=== PATIENT | female | born 1940 | race Caucasian/White ===

== ENCOUNTER 2019-01-20 20:59 | Inpatient (IN) | payer MEDICARE, OTHER, SELFPAY ==
[2019-01-20] VITALS (7 sets, daily range): BP systolic 176–217; BP diastolic 48–80; PULSE 83–92; RESP 17–20; TEMP 38.3; O2SAT 87–94; BMI 28.8
--- NOTE | 2019-01-20 21:29 | DI.RAD.S_ITS ---
PROCEDURE: XR CHEST 2V INDICATIONS: shortness of breath TECHNIQUE: 2 views of the chest were acquired. COMPARISON: [facility], CR, CHEST 1 VIEW, 12/31/2016, 7:20. [facility], CR, CHEST 2 VIEW, 06/03/2008, 14:02. [facility], CT, PE STUDY (CTA CHEST), 12/31/2016, 8:36. FINDINGS: Surgical changes and devices: A pacer device is seen. The leads are seen in stable positions. Lungs and pleura: There is focal dense infiltrate involving the inferior aspect of the right upper lobe. Interstitial prominence can be seen throughout the lungs. No pneumothorax or pleural effusions are seen. Mediastinum: The cardiac contours are within normal limits. The aorta demonstrates calcification and tortuosity. Bones and chest wall: Age-appropriate bony degenerative changes are seen. No suspicious bony abnormalities. Soft tissues appear unremarkable. IMPRESSION: Right upper lobe infiltrate is seen. Interstitial prominence is seen throughout. The interstitial prominence is nonspecific, yet may be related to pulmonary edema. Note: No significant discrepancy from the preliminary report. Dictated by: Gareth Gordon M.D. on 01/21/2019 at 7:23 Approved by: Gareth Gordon M.D. on 01/21/2019 at 7:24
--- NOTE | 2019-01-20 22:02 | ED.SOB ---
HPI - SOB/Dyspnea General Chief Complaint: Shortness of Breath/Dyspnea Stated Complaint: cough,sob Time Seen by Provider: 01/20/19 22:02 Source: patient Mode of arrival: ambulatory Limitations: no limitations History of Present Illness Patient is a 78-year-old female with multiple medical problems. She is an insulin-dependent diabetic, has a pacemaker in place, is on Coumadin, also had kidney transplant 15 years ago. She is here for cough and shortness of breath. She does have a history of COPD but is not on oxygen at home. Has also had a fever. Related Data Home Medications Medication Instructions Recorded Confirmed mycophenolate mofetil [CellCept] 1 tab PO BID #0 03/17/12 01/20/19 tacrolimus [Prograf] 1 tab PO BID #0 03/17/12 01/20/19 febuxostat 40 mg tablet 40 mg PO DAILY 04/25/18 01/20/19 felodipine ER 10 mg 10 mg PO DAILY #0 tab 04/25/18 01/20/19 tablet,extended release 24 hr furosemide 40 mg tablet 40 mg PO BID #0 tab 04/25/18 01/20/19 metoprolol succinate ER 50 mg 50 mg PO DAILY #0 tab 04/25/18 01/20/19 tablet,extended release 24 hr prednisone 5 mg tablet 5 mg PO DAILY 04/25/18 01/20/19 warfarin 3 mg tablet 3 mg PO SEEINSTR 04/25/18 01/20/19 brimonidine 1 drp EYE-BOTH BID 01/20/19 01/20/19 insulin glargine [Lantus U-100 36 units SUBCUT BID 01/20/19 01/20/19 Insulin] irbesartan [Avapro] 150 mg PO DAILY 01/20/19 01/20/19 metformin 1 tab PO BID 01/20/19 01/20/19 pantoprazole 1 tab PO DAILY 01/20/19 01/20/19 pravastatin [Pravachol] 80 mg PO DAILY 01/20/19 01/20/19 tacrolimus 1 tab PO BID 01/20/19 01/20/19 Previous Rx's Medication Instructions Recorded dorzolamide-timolol [Cosopt] 1 gtt OU BID #3 bot 06/09/12 levothyroxine 100 mcg capsule 100 mcg PO DAILY #90 cap 04/25/18 Allergies Allergy/AdvReac Type Severity Reaction Status Date / Time diphenhydramine Allergy Unknown Verified 01/20/19 23:19 [From BENADRYL] Penicillins [PENICILLINS] Allergy Unknown Verified 01/20/19 23:19 percodan Allergy Mild Uncoded 01/20/19 23:19 Review of Systems Constitutional Reports fatigue, Reports fever(s) and Denies headache(s) ENT Ears, Nose, Mouth, and Throat: Denies headache(s) Cardiovascular Denies chest pain and Reports dyspnea Respiratory Reports chest congestion, Reports cough and Reports dyspnea Gastrointestinal Gastrointestinal: Denies abdominal pain, Denies nausea and Denies vomiting Musculoskeletal Denies myalgias and Denies arthralgias Integumentary/Breasts Denies rash Neurologic Denies headache(s) Endocrine Reports fatigue Hematologic/Lymphatic Denies easy bruising Comments: On Coumadin Allergic/Immunologic Denies urticaria PFSH Medical History Diabetes type 2, controlled (Chronic) Coronary artery disease (Chronic) Peripheral vascular disease (Chronic) Diabetic retinopathy (Chronic) Glaucoma (Chronic) Chronic gout (Chronic) HTN (hypertension), benign (Chronic) History of peritoneal dialysis (Inactive) Surgical History S/P cardiac pacemaker procedure (Inactive) H/O kidney transplant (Inactive ~2004) Renal transplant recipient (Resolved) History of cataract extraction with lens replacement (Inactive) Family History Grandmother Thyroid cancer Other Cancer Social History marital status: number of children: 3 household members: spouse and family lives independently: Yes caregiver/support person: No housing: house pets and animals: No education level: college 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 ([place]) leisure activities: other (Food.) Smoking Status: Never smoker Tobacco: How many years used: 0 quit status: quit date established (Never Started) second hand exposure: Yes (Childhood/Young adulthood) alcohol intake: current substance use type: does not use Social History marital status: number of children: 3 household members: spouse and family lives independently: Yes caregiver/support person: No housing: house pets and animals: No education level: college 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 ([place]) leisure activities: other (Food.) Smoking Status: Never smoker Tobacco: How many years used: 0 quit status: quit date established (Never Started) second hand exposure: Yes (Childhood/Young adulthood) alcohol intake: current substance use type: does not use Exam Initial Vital Signs Initial Vital Signs: Vital Signs Temperature 101.0 F H 01/20/19 21:12 Pulse Rate 83 01/20/19 21:12 Respiratory Rate 20 01/20/19 21:12 Blood Pressure 183/68 H 01/20/19 21:12 Pulse Oximetry 87 L 01/20/19 21:12 Const General: cooperative, well developed, well groomed and No acute distress Orientation: alert, awake and oriented x3 HENMT Head: normal to inspection and normocephalic Resp Effort & Inspection: not labored, no respiratory distress, no retractions and tachypneic Auscultation: clear to auscultation bilaterally Cardio Rate: regular rate Pulses: radial pulses present Skin Lesions: no lesions Rashes: no rashes Neuro General: alert, awake and oriented x3 Cognition: normal cognition Speech: speech normal Extrem General: normal to inspection and capillary refill normal Psych Appearance: grossly normal and well kempt Scores GCS Mcclure coma scale eye opening: Spontaneous Ashlie coma scale verbal response: Orientated Ashlie coma scale motor response: Obey commands Mcclure coma scale total score: 15 Course Orders Ordered: ED Orders 01/20/19 21:29 XR chest 2V Stat EKG-12 Lead Stat 01/20/19 21:37 Urine Culture Stat Urine Microscopic Stat 01/20/19 22:39 B Type Natriuretic Peptide Stat Complete Blood Count AUTO DIFF Stat Comprehensive Metabolic Panel Stat Lactate (Lactic Acid) Stat Procalcitonin Stat Troponin I Stat 01/21/19 00:59 Consult to Physician Routine Discontinued Medications Azithromycin (Zithromax) 500 mg PO NOW ONE Stop: 01/20/19 23:29 Last Admin: 01/20/19 23:35 Dose: 500 mg Brimonidine Tartrate (Alphagan P 0.15%) 1 drops EYE-BOTH NOW ONE Stop: 01/21/19 00:55 Last Admin: 01/21/19 03:01 Dose: Not Given Dorzolamide/Timolol (Cosopt Eye Drops) 1 drops EYE-BOTH NOW ONE Stop: 01/21/19 00:55 Last Admin: 01/21/19 03:01 Dose: Not Given Furosemide (Lasix) 40 mg PO NOW ONE Stop: 01/21/19 00:55 Last Admin: 01/21/19 01:54 Dose: Not Given Irbesartan (Avapro) 150 mg PO NOW ONE Stop: 01/21/19 00:55 Last Admin: 01/21/19 02:17 Dose: 150 mg Metformin HCl (Glucophage) 500 mg PO NOW ONE Stop: 01/21/19 00:55 Last Admin: 01/21/19 01:47 Dose: 500 mg Mycophenolate Mofetil (Cellcept) 500 mg PO NOW ONE Stop: 01/21/19 00:59 Last Admin: 01/21/19 02:17 Dose: 500 mg Pantoprazole Sodium (Protonix) 40 mg PO NOW ONE Stop: 01/21/19 00:55 Last Admin: 01/21/19 01:47 Dose: 40 mg Tacrolimus (Prograf) 0.5 mg PO NOW ONE Stop: 01/21/19 00:59 Last Admin: 01/21/19 02:17 Dose: 0.5 mg Warfarin Sodium (Coumadin) 4.5 mg PO NOW ONE Stop: 01/21/19 00:55 Last Admin: 01/21/19 01:54 Dose: Not Given Warfarin Sodium (Coumadin) 3 mg PO NOW ONE Stop: 01/21/19 01:55 Last Admin: 01/21/19 02:17 Dose: 3 mg Vital Signs - 8 hr 01/20/19 21:12 01/20/19 22:24 01/20/19 22:29 Temperature 101.0 F H Pulse Rate 83 86 Respiratory Rate 20 17 Blood Pressure 183/68 H Blood Pressure [Right Arm] Pulse Oximetry 87 L 91 91 01/20/19 22:30 01/20/19 22:54 01/20/19 23:00 Temperature Pulse Rate 85 92 H 84 Respiratory Rate 20 Blood Pressure Blood Pressure [Right Arm] 217/80 H 217/80 H 181/52 H Pulse Oximetry 92 94 89 L 01/20/19 23:30 01/21/19 00:00 01/21/19 00:30 Temperature Pulse Rate 85 87 87 Respiratory Rate Blood Pressure Blood Pressure [Right Arm] 176/48 H 199/61 H 212/71 H Pulse Oximetry 89 L 88 L 92 01/21/19 01:00 01/21/19 01:30 01/21/19 02:25 Temperature 99.0 F Pulse Rate 87 84 84 Respiratory Rate 26 H 24 Blood Pressure Blood Pressure [Right Arm] 203/60 H 186/60 H 183/69 H Pulse Oximetry 93 92 92 01/21/19 02:45 01/21/19 03:49 Temperature 100.4 F H Pulse Rate 82 Respiratory Rate 24 Blood Pressure 189/70 H 139/93 H Blood Pressure [Right Arm] Pulse Oximetry 91 MDM - SOB/Dyspnea Medical Records Attestation: I reviewed the patient's medical records. Lab Data Attestation: I reviewed the patient's lab results. Result diagrams: 01/20/19 22:39 01/20/19 22:39 Lab Results 01/20/19 01/20/19 01/20/19 Range/Units 21:37 22:39 22:39 WBC 8.3 (4.5-11.0) X10^3/uL RBC 4.26 (4.0-5.2) X10^6/uL Hgb 10.2 L (12.0-16.0) g/dL Hct 33.1 L (36-46) % MCV 77.9 L (80-100) fL MCH 24.0 L (26-34) PG MCHC 30.8 (30-36) % RDW 19.1 H (11.6-14.8) % Plt Count 175 (150-400) X10^3/uL Neut % (Auto) 84.5 H (50-75) % Lymph % (Auto) 6.2 L (25-40) % [place] % (Auto) 9.0 (3-14) % Eos % (Auto) 0.1 L (2-4) % Baso % (Auto) 0.2 (0-2) % Neut # (Auto) 7000 (0408-7261) /uL Lymph # (Auto) 500 L (7462-1397) /uL [place] # (Auto) 700 (0-900) /uL Eos # (Auto) 0 (0-450) /uL Baso # (Auto) 0 (0-100) /uL Sodium 140 (137-145) mmol/L Potassium 4.1 (3.4-5.1) mmol/L Chloride 107 (98-107) mmol/L Carbon Dioxide 19 L (22-32) mmol/L BUN 36 H (7-17) mg/dL Creatinine 1.00 (0.52-1.04) mg/dL Estimated GFR 53.6 L (>60) mL/min BUN/Creatinine Ratio 36.0 H (6-22) Glucose 358 H (80-110) mg/dL Lactate (0.7-2.1) mmol/L Calcium 9.4 (8.4-10.2) mg/dL Total Bilirubin 1.1 (0.2-1.3) mg/dL AST 14 (14-36) IU/L ALT 11 (9-52) IU/L Alkaline Phosphatase 61 (38-126) U/L Troponin I (0.01-0.034) ng/mL B-Natriuretic Peptide (<100) Total Protein 6.6 (6.3-8.2) g/dL Albumin 4.0 (3.5-5.0) g/dL Globulin 2.6 (1.7-4.1) g/dL Albumin/Globulin Ratio 1.5 (1.0-2.8) Procalcitonin (<0.5) ng/mL Urine RBC 0-1/hpf (0-5/HPF) Urine WBC 1-5/hpf (0-5/HPF) Ur Squamous Epith Cells 1-5 /hpf (0-5/HPF) Urine Bacteria Occasional (0-1) (None) Ur Culture Indicated? Specimen cultured 01/20/19 01/20/19 01/20/19 Range/Units 22:39 22:39 22:39 WBC (4.5-11.0) X10^3/uL RBC (4.0-5.2) X10^6/uL Hgb (12.0-16.0) g/dL Hct (36-46) % MCV (80-100) fL MCH (26-34) PG MCHC (30-36) % RDW (11.6-14.8) % Plt Count (150-400) X10^3/uL Neut % (Auto) (50-75) % Lymph % (Auto) (25-40) % [place] % (Auto) (3-14) % Eos % (Auto) (2-4) % Baso % (Auto) (0-2) % Neut # (Auto) (7448-8466) /uL Lymph # (Auto) (2863-6364) /uL [place] # (Auto) (0-900) /uL Eos # (Auto) (0-450) /uL Baso # (Auto) (0-100) /uL Sodium (137-145) mmol/L Potassium (3.4-5.1) mmol/L Chloride (98-107) mmol/L Carbon Dioxide (22-32) mmol/L BUN (7-17) mg/dL Creatinine (0.52-1.04) mg/dL Estimated GFR (>60) mL/min BUN/Creatinine Ratio (6-22) Glucose (80-110) mg/dL Lactate 1.0 (0.7-2.1) mmol/L Calcium (8.4-10.2) mg/dL Total Bilirubin (0.2-1.3) mg/dL AST (14-36) IU/L ALT (9-52) IU/L Alkaline Phosphatase (38-126) U/L Troponin I 0.052 H (0.01-0.034) ng/mL B-Natriuretic Peptide (<100) Total Protein (6.3-8.2) g/dL Albumin (3.5-5.0) g/dL Globulin (1.7-4.1) g/dL Albumin/Globulin Ratio (1.0-2.8) Procalcitonin 0.38 (<0.5) ng/mL Urine RBC (0-5/HPF) Urine WBC (0-5/HPF) Ur Squamous Epith Cells (0-5/HPF) Urine Bacteria (None) Ur Culture Indicated? 01/20/19 Range/Units 22:39 WBC (4.5-11.0) X10^3/uL RBC (4.0-5.2) X10^6/uL Hgb (12.0-16.0) g/dL Hct (36-46) % MCV (80-100) fL MCH (26-34) PG MCHC (30-36) % RDW (11.6-14.8) % Plt Count (150-400) X10^3/uL Neut % (Auto) (50-75) % Lymph % (Auto) (25-40) % [place] % (Auto) (3-14) % Eos % (Auto) (2-4) % Baso % (Auto) (0-2) % Neut # (Auto) (0151-9495) /uL Lymph # (Auto) (9004-9262) /uL [place] # (Auto) (0-900) /uL Eos # (Auto) (0-450) /uL Baso # (Auto) (0-100) /uL Sodium (137-145) mmol/L Potassium (3.4-5.1) mmol/L Chloride (98-107) mmol/L Carbon Dioxide (22-32) mmol/L BUN (7-17) mg/dL Creatinine (0.52-1.04) mg/dL Estimated GFR (>60) mL/min BUN/Creatinine Ratio (6-22) Glucose (80-110) mg/dL Lactate (0.7-2.1) mmol/L Calcium (8.4-10.2) mg/dL Total Bilirubin (0.2-1.3) mg/dL AST (14-36) IU/L ALT (9-52) IU/L Alkaline Phosphatase (38-126) U/L Troponin I (0.01-0.034) ng/mL B-Natriuretic Peptide 707 H (<100) Total Protein (6.3-8.2) g/dL Albumin (3.5-5.0) g/dL Globulin (1.7-4.1) g/dL Albumin/Globulin Ratio (1.0-2.8) Procalcitonin (<0.5) ng/mL Urine RBC (0-5/HPF) Urine WBC (0-5/HPF) Ur Squamous Epith Cells (0-5/HPF) Urine Bacteria (None) Ur Culture Indicated? Point of Care Testing Glucose POC 375 Urine Dip Bedside Urine Glucose 250 mg/dl Bedside Urine Bilirubin - Negative Bedside Urine Ketone +/- 5 Urine Specific [place] 1.02 Bedside Urine Occult Blood +/- Bedside Urine pH 5.5 Bedside Urine Protein + 30 Bedside Urine Urobilinogen - Negative Bedside Urine Nitrite - Negative Bedside Urine Leukocytes + 70 Esterase Imaging Data Chest x-ray: Attestation: I personally reviewed and interpreted this imaging study as follows: My impression: Right middle lobe pneumonia ECG Data Attestation: I personally reviewed and interpreted this ECG as follows: Prior ECG tracings: not available for review Interpretation: Ventricular paced Rate of 86 Left axis deviation MDM Narrative Medical decision making narrative: Patient hypoxic on room air to the mid to high 80s. This did improve with nasal cannula. She does have history of a renal transplant however her creatinine and GFR today is fairly unremarkable. She is on warfarin. She has not had any recent hospitalizations. Her chest x-ray is concerning for pneumonia. She is also febrile. Most likely not tachycardic because of the ventricular pacemaker. Patient was never hypotensive. Was given oral azithromycin. I did discuss the case with Dr. Lopez who is on-call for the patient's primary provider. Will admit for further evaluation treatment. Discussed admission with the patient and her who is at bedside. They both expressed understanding and agreement. Discharge Plan Departure Patient Disposition: Admitted As Inpatient Clinical Impression: Hypoxia Pneumonia Qualifiers: Pneumonia type: due to unspecified organism Laterality: right Lung location: middle lobe of lung Qualified Code(s): J18.1 - Lobar pneumonia, unspecified organism Discharge Date/Time: 01/21/19 02:45 Interventions: ED Discharge Assessment Last Done: 01/21/19 02:45 Admit Date/Time: 01/21/19 00:54 Admit Provider: Hi Lopez
[2019-01-20 22:34] LABS: Bacteria Urine Occasional (0-1); Culture Indicated Urine Specimen Cultured; RBC Urine 0-1/HPF (0-5/HPF); Squamous Epithelial Cell Urine 1-5 /HPF (0-5/HPF); WBC Urine 1-5/HPF (0-5/HPF)
[2019-01-20 22:50] LABS: Add Manual Diff / Slide Review NO; Basophils Absolute Auto 0 /uL (0-100); Basophils Percent Auto 0.2 % (0-2); Eosinophils Absolute Auto 0 /uL (0-450); Eosinophils Percent Auto 0.1 % (2-4); Hematocrit 33.1 % (36-46); Hemoglobin 10.2 g/dL (12.0-16.0); Lymphocytes Absolute Auto 500 /uL (1100-4500); Lymphocytes Percent Auto 6.2 % (25-40); Mean Corpuscular HGB Conc 30.8 % (30-36); Mean Corpuscular Volume 77.9 fL (80-100); Monocytes Absolute Auto 700 /uL (0-900); Neutrophils Absolute Auto 7000 /uL (1500-7000); Neutrophils Percent Auto 84.5 % (50-75); Platelet Count 175 X10^3/uL (150-400); Red Blood Cell Count 4.26 X10^6/uL (4.0-5.2); Red Cell Distribution Width 19.1 % (11.6-14.8); White Blood Cell Count 8.3 X10^3/uL (4.5-11.0)
[2019-01-20 23:10] LABS: Alanine Aminotransferase 11 IU/L (9-52); Albumin Globulin Ratio 1.5 (1.0-2.8); Alkaline Phosphatase 61 U/L (38-126); Aspartate Aminotransferase 14 IU/L (14-36); Bilirubin Total 1.1 mg/dL (0.2-1.3); Blood Urea Nitrogen 36 mg/dL (7-17); Calcium 9.4 mg/dL (8.4-10.2); Carbon Dioxide 19 mmol/L (22-32); Chloride 107 mmol/L (98-107); Estimated Glomerular Filt Rate 53.6 mL/min (>60); Globulin 2.6 g/dL (1.7-4.1); Glucose 358 mg/dL (80-110); HEMOLYSIS < 15 (0-50); Potassium 4.1 mmol/L (3.4-5.1); Sodium 140 mmol/L (137-145); Total Protein 6.6 g/dL (6.3-8.2)
[2019-01-20 23:16] LABS: Troponin I 0.052 ng/mL (0.01-0.034)
[2019-01-20 23:25] LABS: Procalcitonin 0.38 ng/mL (<0.5)
[2019-01-20 23:27] LABS: B Type Natriuretic Peptide 707 (<100)
[2019-01-20] MEDS: AZITHROMYCIN 250 MG TABLET 500 MG PO (23:35)
[2019-01-21] VITALS (16 sets, daily range): BP systolic 136–212; BP diastolic 51–115; PULSE 70–94; RESP 18–26; TEMP 37.2–38; O2SAT 87–95; BMI 28.8
--- NOTE | 2019-01-21 | DI.ECHO.S_ITS ---
[facility]---------+ [facility] +---------+ : : [address] [place] : : : : [id number] : : : : Phone: [phone] Echocardiogram Report + + :Name: DELFINO CORNEJO Study Date: 01/21/2019 Height: 63 in : :[facility] Exam Location: [facility] Weight: 163 lb : : Gender: Female BSA: 1.8 m2 : :: 1940 Age: 78 yrs BP: 169/73 mmHg: :Reason For Study: CHF : : Performed By: Jeet Pichardo : :Referring: CARLINE OCAMPO : + + Interpretation Summary Normal sinus rhythm; wide qrs complexes consistent with right ventricular pacing; occasional PAC's and PVC's. Normal LV size; mild LVH; normal wall motion and LV systolic function. EF is 55-60%. There is severe LA enlargement; otherwise normal chamber sizes. There is severe mitral annular calcification with severe associated mitral stenosis and moderate mitral regurgitation. Mean gradient in diastole is 11 mmHg. There is severely calcified aortic valve with moderate aortic stenosis. There is a pacing lead traversing the tricuspid valve without significant tricuspid regurgitation. There is no prior study available for comparison. Procedure: A two-dimensional transthoracic echocardiogram with color flow and Doppler was performed. The study quality was technically adequate. There is no prior echocardiogram noted for this patient. The patient was in normal sinus rhythm during the exam. The patient had occasional PVCs during the exam. Left Ventricle: The left ventricle is normal in size. Left ventricular wall thickness is mildly increased. The ejection fraction is estimated to be 55- 60%. Apical wall motion abnormality may reflect pacemaker activation. There is a mild dyssynchronous contraction pattern due to the paced rhythm. Right Ventricle: The right ventricle is normal in size and function. There is a pacemaker lead in the right ventricle. Atria: The left atrium is severely dilated. Right atrial size is normal. The interatrial septum is intact with no evidence for an atrial septal defect. Mitral Valve: There is severe mitral annular calcification. The mitral valve leaflets are severely calcified. The mitral valve area by pressure half time is 2.8 cm2. The mean pressure gradient of the mitral vlve is 10.8 mmHg. There is moderate mitral regurgitation. Aortic Valve: The aortic valve is trileaflet. The aortic valve is moderately calcified. The peak aortic velocity is 2.91 m/sec. The aortic valve mean gradient is 24.7 mmHg. The calculated aortic valve area is 1.2 cm2. The aortic valve area is 1.0 centimeters squared by planimetry. There is moderate aortic stenosis. No aortic regurgitation is present. Tricuspid Valve: The tricuspid valve is normal in structure and function. There is trace tricuspid regurgitation. Pulmonary artery pressures cannot be estimated because of the lack of a measurable TR jet velocity. Pulmonic Valve: The pulmonic valve is normal in structure and function. There is trace pulmonic regurgitation. Great Vessels: The aortic root is normal size. The dimensions of the ascending aorta are normal. The pulmonary artery is normal size. The IVC is dilated (diameter is greater than 2.1 cm) yet it collapses greater than 50% with a sniff. This suggests a right atrial pressure of 8 mm Hg. Pericardium/ Pleura There is no pericardial effusion. There is no pleural effusion. MMode/2D Measurements & Calculations LVIDd: 5.2 cm LVOT diam: 2.0 cm LVIDs: 3.8 cm Ao root diam: 2.6 cm FS: 26.4 % Aortic Jxn: 2.1 cm EPSS: 0.63 cm asc Aorta Diam: 3.0 cm IVSd: 1.2 cm LVPWd: 1.2 cm LV mccarty. diameter/BSA (cm/m^2): 2.9 LV sys. diameter/BSA (cm/m^2): 2.2 LA dimension: 4.9 cm RA long axis: 5.2 cm LA A2 area: 28.2 cm2 RA area: 16.2 cm2 LA A4 area: 33.2 cm2 RA vol: 43.0 ml LA length (vol): 6.5 cm RA : 24.2 ml/m2 LA vol: 122.9 ml IVC diam: 2.2 cm LA vol index: 69.3 ml/m2 LUIS FERNANDO (plan): 1.0 cm2 Doppler Measurements & Calculations Ao V2 max: 290.9 cm/sec LVOT Max Devonte: 120.7 cm/sec Ao V2 mean: 244.8 cm/sec LV V1 max P.8 mmHg Ao max P.9 mmHg LV V1 VTI: 29.5 cm Ao mean P.7 mmHg LUIS FERNANDO(I,D): 1.4 cm2 Ao V2 VTI: 62.4 cm LUIS FERNANDO(V,D): 1.2 cm2 sev ratio: 0.47 LUIS FERNANDO indexed to BSA (cm^2/m^2): 0.80 MV E max devonte: 199.8 cm/sec PA V2 max: 110.4 cm/sec MV A max devonte: 191.3 cm/sec PA V2 mean: 86.2 cm/sec MV E/A: 1.0 PA mean P.2 mmHg Med Peak E' Devonte: 3.6 cm/sec PA pr(Accel): 19.1 mmHg E/E' med: 55.3 PA Accel Time: 0.13 sec Lat Peak E' Devonte: 4.4 cm/sec E/E' lat: 45.0 E/e' average: 50.2 MV dec time: 0.27 sec MV P1/2t: 79.0 msec MVA(VTI): 1.3 cm2 MV V2 mean: 156.1 cm/sec MV P1/2t max devonte: 198.1 cm/sec MV mean P.8 mmHg MVA(P1/2t): 2.8 cm2 MV V2 VTI: 65.8 cm SV(LVOT): 88.0 ml Electronically signed by: Evelina Jackson M.D. on Reading Physician:01/21/2019 06:03 PM
[2019-01-21] MEDS: METFORMIN HCL 500 MG TABLET PO (01:47)
[2019-01-21] MEDS: PANTOPRAZOLE 20 MG TABLET 40 MG PO (01:47)
[2019-01-21] MEDS: IRBESARTAN 150 MG TABLET PO (02:17)
[2019-01-21] MEDS: TACROLIMUS 0.5 MG CAPSULE PO (02:17)
[2019-01-21] MEDS: MYCOPHENOLATE MOFETIL 500 MG TABLET PO ×2 (02:17→20:57)
[2019-01-21] MEDS: WARFARIN 3 MG TABLET PO ×2 (02:17→17:29)
--- NOTE | 2019-01-21 10:00 | PM.HP.1 ---
History of Present Illness Date Patient Seen: 01/21/19 Time Patient Seen: 10:00 Chief complaint: cough,sob Narrative: Shortness of breath Patient admitted earlier this morning because of shortness of breath. She has had increasing shortness of breath since approximately Tuesday. No apparent fever. Minimal cough minimal cough production has had some nasal congestion as seen in response to Afrin nasal spray. No pedal edema no calf pain no chest pain she did seem to be breathe easier when she would sit up in a chair but still feeling short of breath. She is unaware whether not she has a diagnosis of COPD but she believe so. She was hospitalized in November of this year in [place] for respiratory difficulty. She believes it was from pneumonia. Her stated they were unable to find the ?pathogen? Patient has history of coronary artery disease, status post stent placement, atrial fibrillation, pacemaker placement. Her grain roaster is Dr. Khoury in [place] and she actually had a routine appointment to see him in the office there tomorrow. She also has bilateral lower extremity stents for peripheral vascular disease No history of strokes. Patient has insulin-dependent diabetes has been on insulin for years. She also is status post kidney transplant perhaps over 15 years ago. Kidney failure due to diabetes. Patient taking prednisone as result of a kidney transplant. Patient History Medical History Diabetes type 2, controlled (Chronic) Coronary artery disease (Chronic) Peripheral vascular disease (Chronic) Diabetic retinopathy (Chronic) Glaucoma (Chronic) Chronic gout (Chronic) HTN (hypertension), benign (Chronic) History of peritoneal dialysis (Inactive) Surgical History S/P cardiac pacemaker procedure (Inactive) H/O kidney transplant (Inactive ~2004) Renal transplant recipient (Resolved) History of cataract extraction with lens replacement (Inactive) Family History Grandmother Thyroid cancer Other Cancer Social History marital status: number of children: 3 household members: spouse and family lives independently: Yes caregiver/support person: No housing: house pets and animals: No education level: college occupational status: other (Retired) Previous occupational history: [employer] travel history: recent ([place]) leisure activities: other (Food.) Smoking Status: Never smoker Tobacco: How many years used: 0 quit status: quit date established (Never Started) second hand exposure: Yes (Childhood/Young adulthood) alcohol intake: current substance use type: does not use Family & Social History Family History Grandmother Thyroid cancer Other Cancer Social History: household members spouse,family Prior Living Arrangements House lives independently Yes caregiver/support person No Safety & Behavioral: Feels Safe in Current Yes Environment Been Physically Hurt or No Threatened By a Person Suicidal Ideation Description None Suicide Plan Description No Plan Tobacco & Substance use: Smoking Status Never smoker alcohol intake current alcohol intake frequency 0-2 drinks per day Substance Use Type does not use Meds Home Medications Medication Instructions Recorded Confirmed Type mycophenolate mofetil [CellCept] 1 tab PO BID #0 03/17/12 01/20/19 History tacrolimus [Prograf] 1 tab PO BID #0 03/17/12 01/20/19 History dorzolamide-timolol [Cosopt] 1 gtt OU BID #3 bot 06/09/12 01/20/19 Rx febuxostat 40 mg tablet 40 mg PO DAILY 04/25/18 01/20/19 History felodipine ER 10 mg 10 mg PO DAILY #0 tab 04/25/18 01/20/19 History tablet,extended release 24 hr furosemide 40 mg tablet 40 mg PO BID #0 tab 04/25/18 01/20/19 History levothyroxine 100 mcg capsule 100 mcg PO DAILY #90 cap 04/25/18 01/20/19 Rx metoprolol succinate ER 50 mg 50 mg PO DAILY #0 tab 04/25/18 01/20/19 History tablet,extended release 24 hr prednisone 5 mg tablet 5 mg PO DAILY 04/25/18 01/20/19 History warfarin 3 mg tablet 3 mg PO SEEINSTR 04/25/18 01/20/19 History brimonidine 1 drp EYE-BOTH BID 01/20/19 01/20/19 History insulin glargine [Lantus U-100 36 units SUBCUT BID 01/20/19 01/20/19 History Insulin] irbesartan [Avapro] 150 mg PO DAILY 01/20/19 01/20/19 History metformin 1 tab PO BID 01/20/19 01/20/19 History pantoprazole 1 tab PO DAILY 01/20/19 01/20/19 History pravastatin [Pravachol] 80 mg PO DAILY 01/20/19 01/20/19 History tacrolimus 1 tab PO BID 01/20/19 01/20/19 History Allergies Allergy/AdvReac Type Severity Reaction Status Date / Time diphenhydramine Allergy Unknown Verified 01/20/19 23:19 [From BENADRYL] Penicillins [PENICILLINS] Allergy Unknown Verified 01/20/19 23:19 percodan Allergy Mild Uncoded 01/20/19 23:19 Review of Systems Review of Systems All systems reviewed & are unremarkable except as noted in HPI and below Exam Vital Signs (past 8 hours): - 01/21/19 02:25 01/21/19 02:45 01/21/19 03:49 Temperature 100.4 F H Pulse Rate 84 82 Respiratory Rate 24 24 Blood Pressure 189/70 H 139/93 H Blood Pressure [Right Arm] 183/69 H Pulse Oximetry 92 91 01/21/19 08:00 01/21/19 09:06 Temperature 99.8 F H Pulse Rate 94 H Respiratory Rate 20 Blood Pressure 182/72 H Blood Pressure [Right Arm] Pulse Oximetry 87 L 92 Oxygen Delivery Method Nasal Cannula Oxygen Flow Rate 5 Narrative Exam Narrative: Gen.: She is resting quietly in bed but looks short of breath. Able to carry on conversation without difficulty. Skin: Warm well perfused. No prominent lesions. Nonicteric. HEENT: PERRL., normal EOM, external ears canals TMs normal, nasal mucosa normal and midline septum, oropharynx without lesions. Neck: Trachea midline. Thyroid nontender and not enlarged. Carotids without bruits. No lymphadenopathy Back: No obvious deformity or tenderness. Chest: Clear to P&A. Symmetric. No rales rhonchi or wheezes able to take a deep breath without difficulty CV: RRR 2/6 systolic murmur left lower sternal border parentheses relates patient has history of mitral valve prolapse. Patient relates she has had a murmur in the past or gallop. No JVD. Abdomen: No masses bruits tenderness or visceromegaly. Neuro: Cranial nerves II through XII grossly intact. Sensory and motor exams intact. Gait normal. Mental status: Intact for screening Extremities: No cyanosis clubbing or edema Musculoskeletal: No gross deformities Lymphatics: Negative for lymphadenopathy, supraclavicular axillary or inguinal Objective Labs Result Diagrams: 01/20/19 22:39 01/20/19 22:39 Labs: Laboratory Results - last 24 hr 01/20/19 01/20/19 01/20/19 21:37 22:39 22:39 WBC 8.3 RBC 4.26 Hgb 10.2 L Hct 33.1 L MCV 77.9 L MCH 24.0 L MCHC 30.8 RDW 19.1 H Plt Count 175 Neut % (Auto) 84.5 H Lymph % (Auto) 6.2 L [place] % (Auto) 9.0 Eos % (Auto) 0.1 L Baso % (Auto) 0.2 Neut # (Auto) 7000 Lymph # (Auto) 500 L [place] # (Auto) 700 Eos # (Auto) 0 Baso # (Auto) 0 Sodium 140 Potassium 4.1 Chloride 107 Carbon Dioxide 19 L BUN 36 H Creatinine 1.00 Estimated GFR 53.6 L BUN/Creatinine Ratio 36.0 H Glucose 358 H Lactate Calcium 9.4 Total Bilirubin 1.1 AST 14 ALT 11 Alkaline Phosphatase 61 Troponin I B-Natriuretic Peptide Total Protein 6.6 Albumin 4.0 Globulin 2.6 Albumin/Globulin Ratio 1.5 Procalcitonin Urine RBC 0-1/hpf Urine WBC 1-5/hpf Ur Squamous Epith Cells 1-5 /hpf Urine Bacteria Occasional (0-1) Ur Culture Indicated? Specimen cultured 01/20/19 01/20/19 01/20/19 22:39 22:39 22:39 WBC RBC Hgb Hct MCV MCH MCHC RDW Plt Count Neut % (Auto) Lymph % (Auto) [place] % (Auto) Eos % (Auto) Baso % (Auto) Neut # (Auto) Lymph # (Auto) [place] # (Auto) Eos # (Auto) Baso # (Auto) Sodium Potassium Chloride Carbon Dioxide BUN Creatinine Estimated GFR BUN/Creatinine Ratio Glucose Lactate 1.0 Calcium Total Bilirubin AST ALT Alkaline Phosphatase Troponin I 0.052 H B-Natriuretic Peptide Total Protein Albumin Globulin Albumin/Globulin Ratio Procalcitonin 0.38 Urine RBC Urine WBC Ur Squamous Epith Cells Urine Bacteria Ur Culture Indicated? 01/20/19 22:39 WBC RBC Hgb Hct MCV MCH MCHC RDW Plt Count Neut % (Auto) Lymph % (Auto) [place] % (Auto) Eos % (Auto) Baso % (Auto) Neut # (Auto) Lymph # (Auto) [place] # (Auto) Eos # (Auto) Baso # (Auto) Sodium Potassium Chloride Carbon Dioxide BUN Creatinine Estimated GFR BUN/Creatinine Ratio Glucose Lactate Calcium Total Bilirubin AST ALT Alkaline Phosphatase Troponin I B-Natriuretic Peptide 707 H Total Protein Albumin Globulin Albumin/Globulin Ratio Procalcitonin Urine RBC Urine WBC Ur Squamous Epith Cells Urine Bacteria Ur Culture Indicated? Labs reviewed as above. Of significance is a normal white blood cell count. Normal lactate. Normal procalcitonin. Additionally of significance is elevated BNP. Her renal function is mainly normal. Blood sugar elevated. Chest x-ray is reviewed and certainly has changes consistent with pneumonia versus CHF. Also of note is elevated troponin Assessment & Plan Assessment & Plan narrative: 1. Acute shortness of breath. Chest x-ray most consistent with pneumonia. Remainder of markers however are normal. Other considerations include exacerbation of perhaps pre-existing COPD. Congestive heart failure is manifested by the x-ray and elevated BNP. Patient obviously is at risk for congestive heart failure with prior cardiac status. She currently is on Lasix and perhaps has had history of this in the past. Patient is unclear whether not she has or has not. 2. Coronary artery disease with 2 stents. Currently being followed by Dr. Khoury grain roaster in [place]. Presumably discussion will be made with Dr. Khoury tomorrow by patient's PCP is Dr. Bustos. 3. Pacemaker apparently for some heart block issues. 4. Atrial fibrillation. 5. Diabetes mellitus marginally well controlled per her report. 6. Status post renal failure status post kidney transplant now with normal renal function. 7. Peripheral vascular disease status post stents. Patient also on blood thinners for all the above problems. 8. Elevated troponin history obviously concern for acute coronary event. Repeat troponin ordered as well as echocardiogram. 9. Patient will be continued on IV azithromycin as well as small dose of Lasix. Respiratory therapy to be involved. Quality VTE Deep Vein Thrombosis/Pulmonary Embolism Present on Admission: No
[2019-01-21] MEDS: SODIUM CHLORIDE 0.9% 1,000 ML 50 ML IV (10:28)
[2019-01-21] MEDS: AZITHROMYCIN 250 MG in DEXTROSE 5% IN WATER 250 ML IV (10:28)
[2019-01-21] MEDS: FUROSEMIDE 20 MG/2 ML VIAL IV (10:28)
[2019-01-21] MEDS: SODIUM CHLORIDE 0.9% FLUSH 10 ML IV (10:28)
[2019-01-21] MEDS: INSULIN GLARGINE 100 UNIT/ML 3ML PEN 36 UNIT SUBCUT ×2 (10:29→20:56)
[2019-01-21 11:01] LABS: INR 2.4 (0.9-1.3); Prothrombin Time 28.3 SECONDS (10.1-12.7)
[2019-01-21 11:08] LABS: Troponin I 0.104 ng/mL (0.01-0.034)
--- NOTE | 2019-01-21 12:03 | CM.DANOTE ---
Patient is a 78 year old female who was admitted on 01/21/19 for SOB and cough. Pt has [facility] and [facility] for insurance and her PCP is Dr. Lopez. EMR was reviewed. Per MD, ordering an Echo to help determine Pneumonia vs CHF. Per RT, pt currently on oxygen and doesn't have home oxygen at baseline and with hx of COPD. SW met bedside with pt and spouse and explained role and updated white board. Pt clearly feeling not well with eyes closed and some grimace features but pt was still able to follow conversation and answer questions. Spouse confirms that they live 6 months in their home in [place] and 6 months in [place]. Pt and spouse just left [place] on to move into their home in [place] for the summer. Pt is typically Independent with most ADL's at baseline and does not use home oxygen. Pt states her is her DPOA and they will try to bring in copies. Pt unsure of d/c planning needs but denies any hx of HH or SNF. SW provided pt her Medicare Rights and she and spouse acknowledged understanding and pt requested spouse sign the Medicare Message as she was feeling very unwell. Plan: SW to follow for further tests and therapy to determine d/c planning needs. PT/OT orders could be helpful in determining needs once pt more medically stable. DIMAS Paul Discharge Planning/Care Management Advanced directive, confirm from FAMILY Start: 01/21/19 03:22 Freq: Q24H Status: Active Protocol: Document 01/21/19 09:06 KTE (Rec: 01/21/19 09:20 KTE [id number]) Advance Directive, confirm on record Time 09:06 Person contacted Copy received No CM Discharge Assessment Start: 01/21/19 12:00 Freq: Status: Active Protocol: Document 01/21/19 12:00 BF (Rec: 01/21/19 12:03 BF [id number]) Discharge Planning Assessment Assigned Furniture Designer DIMAS Dean DPOA/Assigned Designee Name Spouse Jimmy Contact Information [phone] Advance Directives? Yes Advance Directives on File No: Will bring in a copy History Provided By Patient Family Member Medical Record Has Patient been admitted in last 30 No days? Prior Living Arrangements House Household Members spouse Type of transporation used prior to Relies on Others admit Independent with ADL's Yes Is patient alert and oriented? Yes Needs Assistance With Home Chores / Shopping Caregiver for Another No Comment Waiting for further tests and therapy Barriers to Discharge No Discharge Plan Home Transportation Arrangement Spouse bedside and can provide transport if pt safe for d/c home Additional Comment Waiting for further therapy and progress to determine if safe for home Whiteboard Updated in Patient Room with Yes name and ext. # of Furniture Designer Review Status In Process Please Provide Date Initial DC 01/21/19 Assessment Was Performed Next Review Type Continued Stay Review
[2019-01-21 12:37] LABS: Adenovirus Not Detected (Not Detect); Bordetella pertussis Not Detected (Not Detect); Chlamydophila pneumoniae Not Detected (Not Detect); Coronavirus 229E Not Detected (Not Detect); Coronavirus HKU1 Not Detected (Not Detect); Coronavirus NL 63 Not Detected (Not Detect); Coronavirus OC43 Not Detected (Not Detect); Human Metapneumovirus Not Detected (Not Detect); Human Rhinovirus/Enterovirus Not Detected (Not Detect); Influenza A Not Detected (Not Detect); Influenza B Not Detected (Not Detect); Mycoplasma pneumoniae Not Detected (Not Detect); Parainfluenza Virus 1 Not Detected (Not Detect); Parainfluenza Virus 2 Not Detected (Not Detect); Parainfluenza Virus 3 Not Detected (Not Detect); Parainfluenza Virus 4 Not Detected (Not Detect); Respiratory Syncytial Virus Not Detected (Not Detect)
[2019-01-21] MEDS: INSULIN ASPART 100 UNIT/ML INSULN PEN SUBCUT ×2 (12:52→17:28)
[2019-01-21 14:37] LABS: Magnesium 1.7 mg/dL (1.6-2.3)
[2019-01-21 14:39] LABS: Hemoglobin A1C% w Est Avg Glu 7.6 % (4.0-6.0)
[2019-01-21 14:49] LABS: Troponin I 0.086 ng/mL (0.01-0.034)
[2019-01-21] MEDS: FUROSEMIDE 40 MG/4 ML VIAL IV (17:28)
[2019-01-21] MEDS: ALBUTEROL/IPRATROPIUM 3 ML AMPUL INH (20:20)
[2019-01-21] MEDS: DORZOLAMIDE/TIMOLOL OPHTH 10 ML 1 DROPS EYE-BOTH (20:53)
[2019-01-21] MEDS: BRIMONIDINE 0.15% OPHTH 5 ML 1 DROPS EYE-BOTH (20:53)
[2019-01-21] MEDS: TACROLIMUS 0.5 MG CAPSULE 1 MG PO (20:55)
[2019-01-21] MEDS: METFORMIN XR 500 MG TABLET PO (20:56)
[2019-01-21] MEDS: FUROSEMIDE 40 MG TABLET PO (20:56)
[2019-01-21] MEDS: ACETAMINOPHEN 325 MG TABLET 650 MG PO (20:58)
[2019-01-21] MEDS: PANTOPRAZOLE 40 MG TABLET PO (20:58)
--- NOTE | 2019-01-21 22:21 | PC.NURSE ---
Evening Shift Note- Patient alert and oriented and able to make needs known to staff. Patient pleasent, calm, and cooperative with care. No complaints of pain or discomfort. No complaints of N/V. Reviewed Medications list with patient and . Called Dr Lopez to correct medication list. Dr. lopez Ok'ed changes to anti-rejection medications that had been entered incorrectly. Dr. Lopez also OK the D/C of the tele monitor. Safety measures in place. Patient agrees to call for assistance. call linder and phone within reach. will continue to monitor.
[2019-01-22] VITALS (18 sets, daily range): BP systolic 128–142; BP diastolic 52–96; PULSE 61–80; RESP 15–25; TEMP 36.6–37.8; O2SAT 88–97
[2019-01-22] MEDS: LEVOTHYROXINE 100 MCG TABLET PO (06:05)
[2019-01-22 06:12] LABS: INR 4.3 (0.9-1.3); Prothrombin Time 50.9 SECONDS (10.1-12.7)
[2019-01-22 06:14] LABS: Add Manual Diff / Slide Review NO; Basophils Absolute Auto 0 /uL (0-100); Basophils Percent Auto 0.4 % (0-2); Eosinophils Absolute Auto 100 /uL (0-450); Eosinophils Percent Auto 1.5 % (2-4); Hematocrit 28.3 % (36-46); Lymphocytes Absolute Auto 700 /uL (1100-4500); Lymphocytes Percent Auto 12.4 % (25-40); Mean Corpuscular HGB Conc 31.8 % (30-36); Mean Corpuscular Hemoglobin 24.5 PG (26-34); Mean Corpuscular Volume 77.2 fL (80-100); Monocytes Absolute Auto 600 /uL (0-900); Monocytes Percent Auto 10.7 % (3-14); Neutrophils Absolute Auto 4000 /uL (1500-7000); Platelet Count 175 X10^3/uL (150-400); Red Blood Cell Count 3.67 X10^6/uL (4.0-5.2); Red Cell Distribution Width 18.8 % (11.6-14.8); White Blood Cell Count 5.3 X10^3/uL (4.5-11.0)
[2019-01-22 06:19] LABS: BUN Creatinine Ratio 33.6 (6-22); Blood Urea Nitrogen 37 mg/dL (7-17); Carbon Dioxide 23 mmol/L (22-32); Chloride 108 mmol/L (98-107); Glucose 104 mg/dL (80-110); HEMOLYSIS < 15 (0-50); Potassium 3.5 mmol/L (3.4-5.1); Sodium 139 mmol/L (137-145)
--- NOTE | 2019-01-22 09:03 | P.PN_ITS ---
Subjective Date Patient Seen: 01/22/19 Time Patient Seen: 08:57 Interval history: Patient's admission status and care over the weekend reviewed with Dr. Lopez who cared for her Patient reports this morning she still feels pretty ?crummy? but perhaps slightly better than upon admission and perhaps even minimally better than yesterday Coughing is bothering her the most. Is less short of breath on the oxygen No new symptoms or problems Exam Vital Signs (past 8 hours): - 01/22/19 06:17 01/22/19 06:28 01/22/19 07:48 Temperature 98.4 F 99.2 F Pulse Rate 79 73 70 Respiratory Rate 25 H 18 Blood Pressure 142/64 H 135/82 Pulse Oximetry 93 97 01/22/19 07:59 Temperature Pulse Rate Respiratory Rate Blood Pressure Pulse Oximetry 97 Oxygen Delivery Method Nasal Cannula Oxygen Flow Rate 4.5 Narrative Exam Narrative: Elderly female in no obvious distress sitting up on the side of the bed. She is not coughing as I speak with her and even as I examine her HEENT-unremarkable, normocephalic atraumatic Neck-no lymphadenopathy no bruits Lungs-clear anteriorly and posteriorly no wheezes no crackles good breath sounds Heart-regular rate and rhythm, no murmur, rub, or gallop. normal S1-S2 Abdomen-positive bowel tones, soft, nontender, nondistended, no hepat osplenomegaly, no masses palpable Neuro-normal to screening exam, gait not tested Extremities-no cyanosis clubbing or edema Objective Imaging Echocardiogram: Radiologist's impression: Normal sinus rhythm; wide qrs complexes consistent with right ventricular pacing; occasional PAC's and PVC's. Normal LV size; mild LVH; normal wall motion and LV systolic function. EF is 55-60%. There is severe LA enlargement; otherwise normal chamber sizes. There is severe mitral annular calcification with severe associated mitral stenosis and moderate mitral regurgitation. Mean gradient in diastole is 11 mmHg. There is severely calcified aortic valve with moderate aortic stenosis. There is a pacing lead traversing the tricuspid valve without significant tricuspid regurgitation. There is no prior study available for comparison. Labs Result Diagrams: 01/22/19 05:52 01/22/19 05:52 Labs: Laboratory Results - last 24 hr 01/20/19 01/21/19 01/21/19 22:39 10:35 10:50 WBC RBC Hgb Hct MCV MCH MCHC RDW Plt Count Neut % (Auto) Lymph % (Auto) [place] % (Auto) Eos % (Auto) Baso % (Auto) Neut # (Auto) Lymph # (Auto) [place] # (Auto) Eos # (Auto) Baso # (Auto) PT 28.3 H INR 2.4 H Sodium Potassium Chloride Carbon Dioxide BUN Creatinine Estimated GFR BUN/Creatinine Ratio Glucose Hemoglobin A1c Calcium Magnesium Troponin I 0.104 H Chlamy pneumoniae PCR Not detected Adenovirus (PCR) Not detected B.parapertussis DNA PCR Not detected Coronavirus OC43 (PCR) Not detected Coronavirus HKU1 (PCR) Not detected Coronavirus 229E (PCR) Not detected Coronavirus NL63 (PCR) Not detected Human Metapneumovir PCR Not detected Influenza Type A (PCR) Not detected Influenza Type B (PCR) Not detected M. pneumoniae (PCR) Not detected Parainfluenza 1 (PCR) Not detected Parainfluenza 2 (PCR) Not detected Parainfluenza 3 (PCR) Not detected Parainfluenza 4 (PCR) Not detected RSV (PCR) Not detected Entero/Rhino (PCR) Not detected 01/21/19 01/21/19 01/21/19 14:20 14:20 14:20 WBC RBC Hgb Hct MCV MCH MCHC RDW Plt Count Neut % (Auto) Lymph % (Auto) [place] % (Auto) Eos % (Auto) Baso % (Auto) Neut # (Auto) Lymph # (Auto) [place] # (Auto) Eos # (Auto) Baso # (Auto) PT INR Sodium Potassium Chloride Carbon Dioxide BUN Creatinine Estimated GFR BUN/Creatinine Ratio Glucose Hemoglobin A1c 7.6 H Calcium Magnesium 1.7 Troponin I 0.086 H Chlamy pneumoniae PCR Adenovirus (PCR) B.parapertussis DNA PCR Coronavirus OC43 (PCR) Coronavirus HKU1 (PCR) Coronavirus 229E (PCR) Coronavirus NL63 (PCR) Human Metapneumovir PCR Influenza Type A (PCR) Influenza Type B (PCR) M. pneumoniae (PCR) Parainfluenza 1 (PCR) Parainfluenza 2 (PCR) Parainfluenza 3 (PCR) Parainfluenza 4 (PCR) RSV (PCR) Entero/Rhino (PCR) 01/22/19 01/22/19 01/22/19 05:52 05:52 05:52 WBC 5.3 RBC 3.67 L Hgb 9.0 L Hct 28.3 L MCV 77.2 L MCH 24.5 L MCHC 31.8 RDW 18.8 H Plt Count 175 Neut % (Auto) 75.0 Lymph % (Auto) 12.4 L [place] % (Auto) 10.7 Eos % (Auto) 1.5 L Baso % (Auto) 0.4 Neut # (Auto) 4000 Lymph # (Auto) 700 L [place] # (Auto) 600 Eos # (Auto) 100 Baso # (Auto) 0 PT 50.9 H D INR 4.3 H Sodium 139 Potassium 3.5 Chloride 108 H Carbon Dioxide 23 BUN 37 H Creatinine 1.10 H Estimated GFR 48.0 L BUN/Creatinine Ratio 33.6 H Glucose 104 D Hemoglobin A1c Calcium 9.0 Magnesium Troponin I Chlamy pneumoniae PCR Adenovirus (PCR) B.parapertussis DNA PCR Coronavirus OC43 (PCR) Coronavirus HKU1 (PCR) Coronavirus 229E (PCR) Coronavirus NL63 (PCR) Human Metapneumovir PCR Influenza Type A (PCR) Influenza Type B (PCR) M. pneumoniae (PCR) Parainfluenza 1 (PCR) Parainfluenza 2 (PCR) Parainfluenza 3 (PCR) Parainfluenza 4 (PCR) RSV (PCR) Entero/Rhino (PCR) Assessment & Plan Assessment & Plan narrative: 1. Pneumonia-patient's clinical status certainly supports the diagnosis of pneumonia with her hypoxia her cough etc. However she has been afebrile and white blood cell count is normal. Chest x-ray supports pneumonia as well. Continue with current IV antibiotics but would have a low threshold for adding broader spectrum given that patient is minimally immunosuppressed due to her renal transplant. Patient however has an allergy to penicillin may need to investigate that further since no further details are at this point available. Given that she is feeling somewhat better and she is been in the hospital relatively short time given her comorbidities I am not overly concerned at this point. I would have a low threshold for perhaps some advanced imaging of her chest and/or again adding a more broad-spectrum IV antibiotic. Patient clearly had acute respiratory failure upon presentation in the emergency department based on her low oxygen saturation, as well as her tachypnea etc. 2. Renal-status post renal transplant-patient's kidney function appears to be stable and slightly improved over admission. No issues there. 3. Diabetes-adequate blood sugar control for now. Continue to monitor and continue current insulins 4. Cardiac-echocardiogram if she did not really show anything that would be an etiology for her hypoxia and dyspnea.She has normal left ventricular function some moderate aortic stenosis. No prior was available for comparison and I have no cardiology notes to assist in that either. Patient was actually due to see her nurse emergency room today apparently. No real benefit from diuretic therapy yesterday. Will continue to treat as an infectious pneumonia at this point Note: Greater than 30 minutes was spent evaluating the patient on the floor, including examining the patient, discussing clinical course with clinical and nursing staff, reviewing clinical course in the computer, preparing documentation and writing orders for continued management of care, discussing status with family as appropriate, reviewing plans for the next 24 hours with both patient/family and nursing staff as appropriate. Quality VTE Deep Vein Thrombosis/Pulmonary Embolism Present on Admission: No
[2019-01-22] MEDS: BRIMONIDINE 0.15% OPHTH 5 ML 1 DROPS EYE-BOTH ×2 (09:23→20:48)
[2019-01-22] MEDS: DORZOLAMIDE/TIMOLOL OPHTH 10 ML 1 DROPS EYE-BOTH ×2 (09:23→20:48)
[2019-01-22] MEDS: AZITHROMYCIN 250 MG in DEXTROSE 5% IN WATER 250 ML IV (09:24)
[2019-01-22] MEDS: FELODIPINE ER 5 MG TAB 10 MG PO (09:24)
[2019-01-22] MEDS: ACETAMINOPHEN 325 MG TABLET 650 MG PO ×2 (09:24→18:54)
[2019-01-22] MEDS: FUROSEMIDE 40 MG TABLET PO ×2 (09:25→20:48)
[2019-01-22] MEDS: IRBESARTAN 150 MG TABLET PO (09:26)
[2019-01-22] MEDS: MYCOPHENOLATE MOFETIL 500 MG TABLET PO ×2 (09:33→20:48)
[2019-01-22] MEDS: METOPROLOL ER 50 MG TABLET PO (09:33)
[2019-01-22] MEDS: predniSONE 5 MG TABLET PO (09:34)
[2019-01-22] MEDS: PRAVASTATIN 20 MG TABLET 80 MG PO (09:34)
[2019-01-22] MEDS: TACROLIMUS 0.5 MG CAPSULE 1.5 MG PO (09:34)
[2019-01-22] MEDS: ALBUTEROL/IPRATROPIUM 3 ML AMPUL INH ×2 (09:54→18:04)
[2019-01-22] MEDS: SODIUM CHLORIDE 0.9% 1,000 ML 50 ML IV (10:05)
[2019-01-22] MEDS: INSULIN ASPART 100 UNIT/ML INSULN PEN SUBCUT ×3 (12:55→20:49)
--- NOTE | 2019-01-22 15:11 | OT.IP.TRT ---
Occupational Therapy Treatment Note M3 OT- IP Subjective and Pain Start: 01/22/19 15:10 Freq: Status: Active Protocol: Document 01/22/19 15:10 [facility] (Rec: 01/22/19 15:11 [facility] [id number]) OT- Subjective Occupational Therapy Visit Type Type Patient Refusal Notes Pt states too tired at this time and wanting to attempt OT eval tomorrow.
--- NOTE | 2019-01-22 15:19 | CM.DPNOTE ---
DCP/continued: Reviewed chart. Met with patient and spouse at bedside re: d/c planning and insurance related questions. Patient resting in bed with [address] Spouse Jimmy, reports that they hope to take patient home when medically stable. Spouse with questions pertaining to Medicare coverage. Notified spouse that patient is inpatient status and that no d/c date has been determined as of now. Reviewed Dr. Bustos note. Patient currently on IV abx and requiring 02. Patient would benefit from PT/OT evaluations when medically appropriate to assist in determining safe d/c plan. P: Pending. Anticipate home when medically stable. Patient and spouse are planning on home. DIMAS Banerjee
[2019-01-22] MEDS: TACROLIMUS 0.5 MG CAPSULE 1 MG PO (20:48)
[2019-01-22] MEDS: PANTOPRAZOLE 40 MG TABLET PO (20:48)
[2019-01-22] MEDS: METFORMIN XR 500 MG TABLET PO (20:48)
[2019-01-22] MEDS: INSULIN GLARGINE 100 UNIT/ML 3ML PEN 36 UNIT SUBCUT (20:49)
--- NOTE | 2019-01-22 22:17 | PC.NURSE ---
Evening note: Jazmín resting tonight, oriented x 3 & situation, VS stable, weaned to 3L O2 with saturation maintaining 95-96% She reports headache pain 7/10, medicated with 2 tylenol and has been dozing since. [place] [facility] [place] 200 ml clear antoine urine. She refused to use walker for transfer but she is quite unsteady on her feet, needs encouragement to use fww by staff. Visiting with her spouse at bedside. Fall precautions in place/alarm active/call button in reach.
[2019-01-23] VITALS (16 sets, daily range): BP systolic 128–147; BP diastolic 62–80; PULSE 53–78; RESP 15–32; TEMP 36.3–36.9; O2SAT 93–97
--- NOTE | 2019-01-23 02:16 | PC.NURSE ---
2300- Pt admit for pneumonia, treated w/ IV abx. ON 3L of O2 viz NC at this time, cont SpO2 in place, sats stable at 95. Pt denies pain or SOB, lung sounds clear. NS running as ordered into R wrist. Moving 1PA to BSC. AC/HS BG checks
[2019-01-23] MEDS: ACETAMINOPHEN 325 MG TABLET 650 MG PO ×2 (05:57→15:37)
[2019-01-23] MEDS: LEVOTHYROXINE 100 MCG TABLET PO (05:59)
[2019-01-23] MEDS: ALBUTEROL/IPRATROPIUM 3 ML AMPUL INH ×3 (06:05→19:02)
[2019-01-23 07:33] LABS: Add Manual Diff / Slide Review NO; Basophils Absolute Auto 0 /uL (0-100); Basophils Percent Auto 0.4 % (0-2); Eosinophils Absolute Auto 100 /uL (0-450); Eosinophils Percent Auto 2.7 % (2-4); Hematocrit 27.3 % (36-46); Hemoglobin 8.6 g/dL (12.0-16.0); Lymphocytes Absolute Auto 700 /uL (1100-4500); Lymphocytes Percent Auto 17.4 % (25-40); Mean Corpuscular HGB Conc 31.7 % (30-36); Mean Corpuscular Hemoglobin 24.4 PG (26-34); Monocytes Absolute Auto 300 /uL (0-900); Monocytes Percent Auto 9.3 % (3-14); Neutrophils Absolute Auto 2600 /uL (1500-7000); Neutrophils Percent Auto 70.2 % (50-75); Platelet Count 181 X10^3/uL (150-400); Red Blood Cell Count 3.54 X10^6/uL (4.0-5.2); Red Cell Distribution Width 18.6 % (11.6-14.8); White Blood Cell Count 3.8 X10^3/uL (4.5-11.0)
[2019-01-23 07:45] LABS: INR 4.1 (0.9-1.3); Prothrombin Time 48.9 SECONDS (10.1-12.7)
[2019-01-23 07:50] LABS: BUN Creatinine Ratio 34.6 (6-22); Blood Urea Nitrogen 45 mg/dL (7-17); Calcium 8.8 mg/dL (8.4-10.2); Carbon Dioxide 23 mmol/L (22-32); Chloride 107 mmol/L (98-107); Estimated Glomerular Filt Rate 39.6 mL/min (>60); Glucose 145 mg/dL (80-110); HEMOLYSIS < 15 (0-50); Potassium 3.6 mmol/L (3.4-5.1); Sodium 138 mmol/L (137-145)
[2019-01-23] MEDS: INSULIN GLARGINE 100 UNIT/ML 3ML PEN 36 UNIT SUBCUT ×2 (08:07→21:02)
[2019-01-23] MEDS: INSULIN ASPART 100 UNIT/ML INSULN PEN SUBCUT ×4 (08:08→21:03)
[2019-01-23] MEDS: SODIUM CHLORIDE 0.9% 1,000 ML 50 ML IV (08:14)
--- NOTE | 2019-01-23 08:38 | P.PN_ITS ---
Subjective Date Patient Seen: 01/23/19 Time Patient Seen: 08:36 Interval history: Patient looks like she feels better. Says she does feel better except for an ongoing headache. No real complaints or issues otherwise Exam Vital Signs (past 8 hours): - 01/23/19 02:03 01/23/19 03:30 01/23/19 06:05 Temperature 98.3 F Pulse Rate 63 Respiratory Rate 16 Blood Pressure 135/70 Pulse Oximetry 95 96 97 01/23/19 07:45 Temperature 98.5 F Pulse Rate 64 Respiratory Rate 15 Blood Pressure 142/80 H Pulse Oximetry 97 Oxygen Delivery Method Nasal Cannula Oxygen Flow Rate 3 Narrative Exam Narrative: Unchanged from previous Objective Labs Result Diagrams: 01/23/19 07:05 01/24/19 05:49 Labs: Laboratory Results - last 24 hr 01/23/19 01/23/19 01/23/19 07:05 07:05 07:05 WBC 3.8 L RBC 3.54 L Hgb 8.6 L Hct 27.3 L MCV 77.0 L MCH 24.4 L MCHC 31.7 RDW 18.6 H Plt Count 181 Neut % (Auto) 70.2 Lymph % (Auto) 17.4 L Schuyler % (Auto) 9.3 Eos % (Auto) 2.7 Baso % (Auto) 0.4 Neut # (Auto) 2600 Lymph # (Auto) 700 L Schuyler # (Auto) 300 Eos # (Auto) 100 Baso # (Auto) 0 PT 48.9 H INR 4.1 H Sodium 138 Potassium 3.6 Chloride 107 Carbon Dioxide 23 BUN 45 H Creatinine 1.30 H Estimated GFR 39.6 L BUN/Creatinine Ratio 34.6 H Glucose 145 H Calcium 8.8 Assessment & Plan Assessment & Plan narrative: 1. Pneumonia -patient's clinical status continues to improve. Continue with current IV antibiotics. Oxygen requirements have diminished. No changes. 2. Renal-patient's creatinine is up slightly today still within her baseline range. I think we can DC IV fluids and rely on oral fluids only. No changes. Plan to recheck tomorrow and if continues to be stable probably not further recheck. 3. Diabetes-adequate blood sugar control for now 4. Cardiac-patient did it appear Systane a type 2 myocardial infarction based on elevated troponin, but no evidence of wall motion abnormality on echocardiogram etc. again believe any cardiac issues are related to her pneumonia hypoxia respiratory failure etc. 5. Coagulopathy-patient continues to have elevated INR. Continue off warfarin for now and recheck protime tomorrow. Resume warfarin when within therapeutic r alcira . Note: Greater than 30 minutes was spent evaluating the patient on the floor, including examining the patient, discussing clinical course with clinical and nursing staff, reviewing clinical course in the computer, preparing documentation and writing orders for continued management of care, discussing status with family as appropriate, reviewing plans for the next 24 hours with both patient/family and nursing staff as appropriate. Quality VTE Deep Vein Thrombosis/Pulmonary Embolism Present on Admission: No
[2019-01-23] MEDS: DORZOLAMIDE/TIMOLOL OPHTH 10 ML 1 DROPS EYE-BOTH ×2 (09:12→20:59)
[2019-01-23] MEDS: FELODIPINE ER 5 MG TAB 10 MG PO (09:13)
[2019-01-23] MEDS: BRIMONIDINE 0.15% OPHTH 5 ML 1 DROPS EYE-BOTH ×2 (09:14→21:00)
[2019-01-23] MEDS: FUROSEMIDE 40 MG TABLET PO ×2 (09:16→21:00)
[2019-01-23] MEDS: METFORMIN XR 500 MG TABLET PO ×2 (09:17→21:00)
[2019-01-23] MEDS: IRBESARTAN 150 MG TABLET PO (09:17)
[2019-01-23] MEDS: METOPROLOL ER 50 MG TABLET PO (09:18)
[2019-01-23] MEDS: MYCOPHENOLATE MOFETIL 500 MG TABLET PO ×2 (09:19→21:00)
[2019-01-23] MEDS: TACROLIMUS 0.5 MG CAPSULE 1.5 MG PO (09:20)
[2019-01-23] MEDS: predniSONE 5 MG TABLET PO (09:21)
[2019-01-23] MEDS: PRAVASTATIN 20 MG TABLET 80 MG PO (09:21)
[2019-01-23] MEDS: SODIUM CHLORIDE 0.9% FLUSH 10 ML IV ×2 (09:23→21:00)
--- NOTE | 2019-01-23 10:28 | PC.NURSE ---
Jazmín feels a bit better today but is still weak and somewhat short of air with exertion. Lungs diminished leonard., with NPC. RT initially weaned Jazmín off O2, but roughly 30 min. later at rest she was de-satting to 84%. O2 replaced at 2L/nc. O2 sats now consistantly in 90's range. VSS. Labs show INR still elevated. has addressed this. PT could benefit from PT.
[2019-01-23] MEDS: AZITHROMYCIN 250 MG in DEXTROSE 5% IN WATER 250 ML IV (10:32)
--- NOTE | 2019-01-23 10:59 | OT.IP.EVAL ---
Current Diagnoses Pneumonia, unspecified organism (01/21/19) Past Medical History (Last Reviewed 01/21/19 @ 10:04 by Hi Lopez MD) Diabetes type 2, controlled (Chronic) Coronary artery disease (Chronic) Peripheral vascular disease (Chronic) Diabetic retinopathy (Chronic) Glaucoma (Chronic) Chronic gout (Chronic) HTN (hypertension), benign (Chronic) History of peritoneal dialysis (Inactive) Surgical History (Last Reviewed 01/21/19 @ 10:04 by Hi Lopez MD) S/P cardiac pacemaker procedure (Inactive) H/O kidney transplant (Inactive ~2004) Renal transplant recipient (Resolved) History of cataract extraction with lens replacement (Inactive) Occupational Therapy Inpatient Evaluation/Re-Eval M1 PT/OT-IP Prior Functional Status Start: 01/22/19 15:10 Freq: NEEDED Status: Active Protocol: Document 01/23/19 10:59 PJRose (Rec: 01/23/19 14:28 PJ [id number]) Medical Review Prior Functional Status Medical History Reviewed Yes Diet/Fluid Consistency Regular Communication WNL Mobility and Gait Pt states she ambulates independently without a device , but has limited endurance for prolonged walking e.g. in grocery store. Activities of Daily Living and IADL's Pt states she is independent with all self care including standing to shower in tub shower combo. Pt does most of the cooking. She and share quantitative developer. Her manages medications, finances. Prior Functional Level (Other details) Pt has not driven for 20 years due to low vision. Social History Household Members spouse Living Arrangements House Number of Floors (Floors) Two Floors Number of Stairs To Enter/Railing? 1 step to enter; pt. stay on main level, they do not use upstairs level Home Environment Standard Height Toilet Tub/Shower Home Equipment Grab Bars In Shower Employment Status Retired Additional Social History Comment Supportive, protective can provide 24 hr assist at d/c. He walks with cane. M2 OT-IP Current Condition Start: 01/22/19 15:10 Freq: Status: Active Protocol: Document 01/23/19 10:59 PJM (Rec: 01/23/19 14:28 JOSE RAMON [id number]) Occupational Therapy Current Condition Current Condition Evaluation Date 01/23/19 Treatment Diagnosis decreased activity tolerance, mobility, self care skills; DX : PNA,CHF Diagnosis Onset Date 01/21/19 Post Operative Precautions Other Precautions fall risk 2L O2 this session, monitor O2 sats M3 OT- IP Subjective and Pain Start: 01/22/19 15:10 Freq: Status: Active Protocol: Document 01/23/19 10:59 PJM (Rec: 01/23/19 14:28 PJ [email or web address]) OT- Subjective Occupational Therapy Visit Type Type Initial Evaluation Visit Start Time 10:19 Visit Stop Time 10:59 Total Visit Minutes 40 Notes observing this session ; He is concerned about pt mobilizing with IV pole due to fragile IV site. Occupational Therapy Visit Comments Patient Comments I can do it. I don't need the walker just to go to the chair. OT Pain Assessment Pain When Pain Assessed After Treatment Pain Present Pain Present Denied Pain M4 OT- IP ADL's Start: 01/22/19 15:10 Freq: Status: Active Protocol: Document 01/23/19 10:59 PJM (Rec: 01/23/19 14:28 PJ [email or web address]) OT [id number] General Evaluation Self-Feeding Ability Independent OT ADL-Grooming General Evaluation Grooming Ability Standby Assistance Comments OT Grooming Comments seated in chair; pt declines to walk to sink this session due to IV running into fragile IV site OT ADL-Oral Care General Eval Oral Care Ability Standby Assistance Comments Oral Care Comments seated in chair OT ADL-Dressing General Eval Upper Body Dressing Ability Minimal Assistance Lower Body Dressing Ability Standby Assistance Areas Needing Assistance Socks Comments OT Dressing Comments min assist with robe due to fragile IV site, pt can reach feet by crossing foot over opposite knee OT ADL-Toileting Comments OT Toileting Comments did not occur this session OT ADL-Bathing Bathing Type Bathing Type Shower Comments OT Bathing Comments to be assessed as activity tolerance improves M5 OT- IP IADL's Start: 01/22/19 15:10 Freq: Status: Active Protocol: Document 01/23/19 10:59 PJM (Rec: 01/23/19 14:28 PJ [id number]) OT-Instrumental Activities of Daily Living Deficits IADL Deficits Identified Deficits Home Safety Awareness Awareness of Need for Assistance at Home Good Awareness Ability to Problem Solve Emergency Able to Problem Solve Situations Medication Management Medication Management Caregiver Administers Medication Management Comments manages all medications at home Money Management Money Management Caregiver Provides Assistance Money Management Comments manages finances due to pt's low vision Meal Preparation Meal Preparation Caregiver Provides Assist Meal Preparation Comments to assist until pt able Fire Prevention Research Engineer Fire Prevention Research Engineer Caregiver Provides Assist Fire Prevention Research Engineer Comments to assist until pt able Driving Driving Caregiver Provides Assist Driving Comments to assist until pt able M6 OT- IP Functional Cognition Start: 01/22/19 15:10 Freq: Status: Active Protocol: Document 01/23/19 10:59 PJM (Rec: 01/23/19 14:28 PJ [id number]) Cognitive Factors Limiting Selfcare Function Cognitive Ability Level of Alertness Alert Patient Orientation Name Place Situation Attention Span Ability Capable of Focused Attention Capable of Sustained Attention Ability to Follow Commands Able to Follow One Step Commands Memory Description No Deficits Noted Safety Awareness No Deficits Noted Cognitive Comments Cognitive Assessment Comments Pt reluctant to use FWW. OT- Vision and Hearing OT- Hearing Assessment OT- Hearing Assessment WFL OT- Vision Assessment Vision History Low Vision Vision Assessment Comments Pt states her glasses don't help so she does not wear them . Pt reports diabetic retinopathy, glaucoma, S/P B cataract surgery M7 OT- IP Mobility and Balance Start: 01/22/19 15:10 Freq: Status: Active Protocol: Document 01/23/19 10:59 PJM (Rec: 01/23/19 14:28 PJ [id number]) OT- Bed Mobility Assessment Rolling Type of Rolling Roll to Left Level of Assistance Standby Assistance 1 Person Assistance Supine to Sit Supine to Sit Assist Standby Assistance 1 Person Assistance Bedrails OT-Transfer Assessment Sit to and From Stand Sit to and from Stand Contact Guard Assistance Transfers Transfer Ability Contact Guard Assistance 1 Person Assistance Technique Transfer Destination Chair Transfer Technique Stand Step Pivot Devices Transfer Assistive Devices Front Wheeled Walker Comments Mobility Comments pt declined gait belt OT- Gait Assessment Comments Gait Ability Comments to be assessed OT- Balance Assessment Sitting Balance and Reactions Static Sitting Balance Ability Good Dynamic Sitting Balance Ability Good Standing Balance and Reactions Static Standing Balance Ability Good M8 OT- IP Objective Assessments Start: 01/22/19 15:10 Freq: Status: Active Protocol: Document 01/23/19 10:59 PJM (Rec: 01/23/19 14:28 PJ [id number]) OT Gross Range of Motion Upper Extremity Range of Motion Assessment Within Functional Limits OT Strength Upper Extremity Strength Assessment Within Functional Limits Hand Regional Sales Director Strength Hand Dominance Right OT- Coordination Assessment Comments Coordination Comments BUW WFL OT-Muscle Tone Assessment Muscle Tone WNL Yes OT Sensation Assessment Comments Summary Comments BUE WFL per pt M9 OT- IP Assessment and Plan Start: 01/22/19 15:10 Freq: Status: Active Protocol: Document 01/23/19 10:59 PJM (Rec: 01/23/19 14:28 PJM [email or web address]) OT Summary Assessment and Plan Potential Rehabilitation Potential Good Analytic Complexity at Evaluation Low Summary OT Impairments Strength Balance Functional Mobility Grooming Dressing Toileting Bathing Toilet Transfers Shower Transfers Assessment Summary Low complexity OT assessment completed on this 78 yr old female admitted with PNA and CHF. Pt's primary performance deficit is decreased activity tolerance for all self care and functional mobility. She was on 2L O2 this session with sats in mid to high 90's with transfer to chair. Pt's is protective and needed education re: benefits of out of bed activity/ mobility with pt's current diagnosis. Pt will benefit from OT services here to address the goals below. Anticipate pt will be able to d/c home when medically stable. Recommend P.T. assessment as pt may benefit from use of FWW for stability during mobility. Goals Grooming Goal Independent Dressing Goal Independent Toileting Goal Independent Bathing Goal Standby Assistance Toilet Transfer Goal Independent Shower Transfer Goal Standby Assistance Shower Chair Patient/Caregiver Education Goal Demonstrate Energy Conservation and Pacing Caregiver Independent Assisting Patient OT-Other Goals Grooming to be done standing at sink 5 min with no loss of balance and good safety awareness. Days to Meet Goals 3 Frequency of Treatment Frequency Of Treatment Once a Day Treatment Plan OT Treatment Plan ADL Training Functional Mobility Patient/Family Education Discharge Planning Discharge Recommendations OT Discharge Recommendations Home with 04/04 Assist Home Equipment Needs shower seat
[2019-01-23] MEDS: TACROLIMUS 0.5 MG CAPSULE 1 MG PO (21:00)
[2019-01-23] MEDS: PANTOPRAZOLE 40 MG TABLET PO (21:00)
[2019-01-24] VITALS (15 sets, daily range): BP systolic 110–142; BP diastolic 54–80; PULSE 52–87; RESP 16–22; TEMP 36.5–37; O2SAT 85–96
[2019-01-24] MEDS: LEVOTHYROXINE 100 MCG TABLET PO (05:51)
[2019-01-24 06:29] LABS: INR 3.1 (0.9-1.3)
[2019-01-24 06:34] LABS: BUN Creatinine Ratio 38.5 (6-22); Blood Urea Nitrogen 50 mg/dL (7-17); Carbon Dioxide 22 mmol/L (22-32); Chloride 109 mmol/L (98-107); Estimated Glomerular Filt Rate 39.6 mL/min (>60); Glucose 50 mg/dL (80-110); HEMOLYSIS < 15 (0-50); Potassium 3.6 mmol/L (3.4-5.1); Sodium 141 mmol/L (137-145)
--- NOTE | 2019-01-24 07:57 | PC.NURSE ---
Addendum entered by Ava Sullivan R.N. 01/24/19 15:22: Pt's blood sugar came up to 86 after breakfast and some glucerna. She has been asymptomatic. Lunch time CBG was 144. Pt's O2 sats recovered into the mid 90's after RT provided am breathing treatment. Original Note: Pt found to have blood glucose of 56 this am upon waking. She was provided a glucerna drink before reassessing. O2 sats 86% on 2L via nasal cannula. Pt O2 turned up to 3L and RT has been contacted and requested at the bedside for assessment and breathing treatment.
[2019-01-24] MEDS: ALBUTEROL/IPRATROPIUM 3 ML AMPUL INH ×3 (08:06→19:04)
--- NOTE | 2019-01-24 08:28 | PM.PN.1 ---
Subjective Date Patient Seen: 01/24/19 Time Patient Seen: 08:28 Interval history: Patient still complaining of head pain. It is a sharp pain issues from just under her left ear backwards. Then she has a pain that goes backwards across the bottom of the head and over the top to her forehead. Seems to come and go. Different than what she felt before when she was diagnosed with occipital neuralgia. Still coughing. Still feels weak and puny Exam Vital Signs (past 8 hours): - 01/24/19 04:00 01/24/19 07:47 01/24/19 08:09 Temperature 98.0 F Pulse Rate 87 63 Respiratory Rate 20 20 Blood Pressure 120/54 L Pulse Oximetry 94 86 L 93 01/24/19 08:15 Temperature Pulse Rate Respiratory Rate Blood Pressure Pulse Oximetry 85 L Oxygen Delivery Method Room Air Oxygen Flow Rate 0 Narrative Exam Narrative: Unchanged Objective Labs Result Diagrams: 01/23/19 07:05 01/24/19 05:49 Labs: Laboratory Results - last 24 hr 01/24/19 01/24/19 05:49 05:49 PT 36.0 H D INR 3.1 H Sodium 141 Potassium 3.6 Chloride 109 H Carbon Dioxide 22 BUN 50 H Creatinine 1.30 H Estimated GFR 39.6 L BUN/Creatinine Ratio 38.5 H Glucose 50 L Calcium 9.0 Assessment & Plan Assessment & Plan narrative: 1. Pneumonia-continue with current antibiotic therapy. This seems to be appropriate for the usual organisms that would be potentially associated with community-acquired pneumonia including community-acquired pneumonia associated with patient on immunosuppression after solid organ transplant, several years in the past. 2. Renal-numbers are stable. Will therefore plan to probably recheck only 1 more time before discharge unless clinical condition suggests the need to check sooner 3. Diabetes-blood sugars for unknown reasons shot up over the course of the day yesterday. Much higher today. Will adjust her sliding scale insulin and give her a bit more long-acting insulin as well 4. Cardiac-as noted yesterday patient with what appears to be a type 2 myocardial infarction upon admission. No evidence of further cardiac issues at this time as we treated her underlying issues. 5. Head pain-sounds like more of a muscle tension type discomfort. Will try her on some cyclobenzaprine at low dose and give her a dose of nortriptyline at night and see if we can break this cycle. 5. Coagulopathy-patient continues to have elevated INR but is coming down plan to recheck tomorrow, resume warfarin when within therapeutic range Note: Greater than 30 minutes was spent evaluating the patient on the floor, including examining the patient, discussing clinical course with clinical and nursing staff, reviewing clinical course in the computer, preparing documentation and writing orders for continued management of care, discussing status with family as appropriate, reviewing plans for the next 24 hours with both patient/family and nursing staff as appropriate. Quality VTE Deep Vein Thrombosis/Pulmonary Embolism Present on Admission: No
--- NOTE | 2019-01-24 08:31 | P.PN_ITS ---
Subjective Date Patient Seen: 01/24/19 Time Patient Seen: 08:28 Interval history: Patient still complaining of head pain. It is a sharp pain issues from just under her left ear backwards. Then she has a pain that goes backwards across the bottom of the head and over the top to her forehead. Seems to come and go. Different than what she felt before when she was diagnosed with occipital neuralgia. Still coughing. Still feels weak and puny Exam Vital Signs (past 8 hours): - 01/24/19 04:00 01/24/19 07:47 01/24/19 08:09 Temperature 98.0 F Pulse Rate 87 63 Respiratory Rate 20 20 Blood Pressure 120/54 L Pulse Oximetry 94 86 L 93 01/24/19 08:15 Temperature Pulse Rate Respiratory Rate Blood Pressure Pulse Oximetry 85 L Oxygen Delivery Method Room Air Oxygen Flow Rate 0 Narrative Exam Narrative: Unchanged Objective Labs Result Diagrams: 01/23/19 07:05 01/24/19 05:49 Labs: Laboratory Results - last 24 hr 01/24/19 01/24/19 05:49 05:49 PT 36.0 H D INR 3.1 H Sodium 141 Potassium 3.6 Chloride 109 H Carbon Dioxide 22 BUN 50 H Creatinine 1.30 H Estimated GFR 39.6 L BUN/Creatinine Ratio 38.5 H Glucose 50 L Calcium 9.0 Assessment & Plan Assessment & Plan narrative: 1. Pneumonia-continue with current antibiotic therapy. This seems to be appropriate for the usual organisms that would be potentially associated with community-acquired pneumonia including community-acquired pneumonia associated with patient on immunosuppression after solid organ transplant, several years in the past. 2. Renal-numbers are stable. Will therefore plan to probably recheck only 1 more time before discharge unless clinical condition suggests the need to check sooner 3. Diabetes-blood sugars for unknown reasons shot up over the course of the day yesterday. Much higher today. Will adjust her sliding scale insulin and give her a bit more long-acting insulin as well 4. Cardiac-as noted yesterday patient with what appears to be a type 2 myocardia l infarction upon admission. No evidence of further cardiac issues at this time as we treated her underlying issues. 5. Head pain-sounds like more of a muscle tension type discomfort. Will try her on some cyclobenzaprine at low dose and give her a dose of nortriptyline at night and see if we can break this cycle. 5. Coagulopathy-patient continues to have elevated INR but is coming down plan t o recheck tomorrow, resume warfarin when within therapeutic range Note: Greater than 30 minutes was spent evaluating the patient on the floor, including examining the patient, discussing clinical course with clinical and nursing staff, reviewing clinical course in the computer, preparing document ation and writing orders for continued management of care, discussing status with family as appropriate, reviewing plans for the next 24 hours with both patient/family and nursing staff as appropriate. Quality VTE Deep Vein Thrombosis/Pulmonary Embolism Present on Admission: No
--- NOTE | 2019-01-24 10:33 | OT.IP.TRT ---
Current Diagnoses Pneumonia, unspecified organism (01/21/19) Occupational Therapy Treatment Note M2 OT-IP Current Condition Start: 01/22/19 15:10 Freq: Status: Active Protocol: Document 01/23/19 10:59 PJM (Rec: 01/23/19 14:28 PJM [email or web address]) Occupational Therapy Current Condition Current Condition Evaluation Date 01/23/19 Treatment Diagnosis decreased activity tolerance, mobility, self care skills; DX : PNA,CHF Diagnosis Onset Date 01/21/19 Post Operative Precautions Other Precautions fall risk 2L O2 this session, monitor O2 sats M3 OT- IP Subjective and Pain Start: 01/22/19 15:10 Freq: Status: Active Protocol: Document 01/24/19 10:33 PJM (Rec: 01/24/19 13:31 PJM [email or web address]) OT- Subjective Occupational Therapy Visit Type Type Treatment Note Visit Start Time 10:23 Visit Stop Time 10:33 Total Visit Minutes 10 Occupational Therapy Visit Comments Patient Comments I am so tired from having diarrhea this morning and then I went into the shower. Patient/Caregiver Goals to go home OT Pain Assessment Pain Present Pain Present Pain Reported FLACC Pain Scale Face Occasional grimace/frown Legs Uneasy, restless, tense Activity Quiet, moves easily Cry No cry (awake or asleep) Consolability Reassurable with touch FLACC Total 3 Location Head Scale Used pt doesn't not rate episodes of sharp pain along L side of head M4 OT- IP ADL's Start: 01/22/19 15:10 Freq: Status: Active Protocol: Document 01/24/19 10:33 PJM (Rec: 01/24/19 13:31 PJM [email or web address]) OT ADL-Grooming Comments OT Grooming Comments pt declined any grooming tasks this session I just had a shower. OT ADL-Toileting Comments OT Toileting Comments Pt needed assist with bowel clean up after episode of incontinent diarrhea today. OT ADL-Bathing Bathing Type Bathing Type Shower General Evaluation Bathing Ability Minimal Assistance Areas Needing Assistance Wash/Dry Lower Extremities Comments OT Bathing Comments Per MANAGER OF TRAINING pt able to complete 75% of shower with assist only with lower legs and feet. Pt sat the entire time. Provided further education to pt/ re: shower seat for use to conserve energy and increase safety with shower at home. Provided written information re: resources for M7 OT- IP Mobility and Balance Start: 01/22/19 15:10 Freq: Status: Active Protocol: Document 01/24/19 10:33 PJM (Rec: 01/24/19 13:31 PJM [email or web address]) OT- Bed Mobility Assessment Sit to Supine Sit to Supine Assist Independent OT-Transfer Assessment Sit to and From Stand Sit to and from Stand Standby Assistance Transfers Transfer Ability Standby Assistance Technique Transfer Destination Bed Transfer Technique Stand Step Pivot Devices Transfer Assistive Devices None OT- Gait Assessment Gait Gait Assistance Required: Standby Assistance Distance (Feet) 10 Assistive Devices Assistive Device None Comments Gait Ability Comments Pt ambulated 10 ft in room without a device. Pt admanant about not using FWW for short distances; suspect she furniture walks at home. OT- Balance Assessment Sitting Balance and Reactions Static Sitting Balance Ability Good Standing Balance and Reactions Static Standing Balance Ability Good M9 OT- IP Assessment and Plan Start: 01/22/19 15:10 Freq: Status: Active Protocol: Document 01/24/19 10:33 PJM (Rec: 01/24/19 13:31 PJM [email or web address]) OT Summary Assessment and Plan Potential Rehabilitation Potential Good Summary Progress Towards Goals Progressing Toward Goals Assessment Summary Pt fatigued from episode of diarrhea and shower prior to therapist's arrival today. Pt reluctant to agree to shower chair with some decreased insight noted re: need for energy conservation and pacing . Pt remains on 2 L O2. Pt agreed to grooming at sink tomorrow to increase activity tolerance. Anticipate pt will d/c home with 24 hr assist from supportive if she continues to improve here. Goals Grooming Goal Independent Dressing Goal Independent Toileting Goal Independent Bathing Goal Standby Assistance Toilet Transfer Goal Independent Shower Transfer Goal Standby Assistance Shower Chair Patient/Caregiver Education Goal Demonstrate Energy Conservation and Pacing Caregiver Independent Assisting Patient OT-Other Goals Grooming to be done standing at sink 5 min with no loss of balance and good safety awareness. Days to Meet Goals 2 Frequency of Treatment Frequency Of Treatment Once a Day Treatment Plan OT Treatment Plan ADL Training Functional Mobility Patient/Family Education Discharge Planning Discharge Recommendations OT Discharge Recommendations Home with 24/7 Assist Home Equipment Needs shower seat, long bath sponge
[2019-01-24] MEDS: FELODIPINE ER 5 MG TAB 10 MG PO (10:55)
[2019-01-24] MEDS: BRIMONIDINE 0.15% OPHTH 5 ML 1 DROPS EYE-BOTH ×2 (10:55→21:42)
[2019-01-24] MEDS: DORZOLAMIDE/TIMOLOL OPHTH 10 ML 1 DROPS EYE-BOTH ×2 (10:55→21:42)
[2019-01-24] MEDS: METFORMIN XR 500 MG TABLET PO ×2 (10:56→21:40)
[2019-01-24] MEDS: METOPROLOL ER 50 MG TABLET PO (10:56)
[2019-01-24] MEDS: predniSONE 5 MG TABLET PO (10:56)
[2019-01-24] MEDS: PRAVASTATIN 20 MG TABLET 80 MG PO (10:57)
[2019-01-24] MEDS: IRBESARTAN 150 MG TABLET PO (10:58)
[2019-01-24] MEDS: MYCOPHENOLATE MOFETIL 500 MG TABLET PO ×2 (10:58→21:43)
[2019-01-24] MEDS: TACROLIMUS 0.5 MG CAPSULE 1.5 MG PO (10:59)
[2019-01-24] MEDS: SODIUM CHLORIDE 0.9% FLUSH 10 ML IV ×2 (11:00→21:42)
--- NOTE | 2019-01-24 11:26 | PT.IPTN ---
Current Diagnoses Pneumonia, unspecified organism (01/21/19) Physical Therapy Treatment Note M3 PT-IP Subjective Start: 01/24/19 11:25 Freq: NEEDED Status: Active Protocol: Document 01/24/19 11:26 DLM (Rec: 01/24/19 11:26 DLM [email or web address]) Subjective Physical Therapy Visit Type Type Patient Refusal Notes Pt refused PT eval due to too tired. Pt up to chair and shower with nursing earlier this AM. Will attempt eval again this afternoon.
[2019-01-24] MEDS: CYCLOBENZAPRINE 5 MG TABLET PO ×3 (11:54→21:40)
[2019-01-24] MEDS: FUROSEMIDE 40 MG TABLET PO ×2 (11:54→21:42)
[2019-01-24] MEDS: INSULIN ASPART 100 UNIT/ML INSULN PEN SUBCUT ×3 (12:55→21:44)
[2019-01-24] MEDS: AZITHROMYCIN 250 MG in DEXTROSE 5% IN WATER 250 ML IV (13:01)
--- NOTE | 2019-01-24 14:58 | PT.IPTN ---
Current Diagnoses Pneumonia, unspecified organism (01/21/19) Physical Therapy Treatment Note M3 PT-IP Subjective Start: 01/24/19 11:25 Freq: NEEDED Status: Active Protocol: Document 01/24/19 14:57 DLM (Rec: 01/24/19 14:58 DLM [id number]) Subjective Physical Therapy Visit Type Type Patient Refusal Notes Pt reports she is too tired
[2019-01-24] MEDS: NORTRIPTYLINE 10 MG CAPSULE PO (21:40)
[2019-01-24] MEDS: PANTOPRAZOLE 40 MG TABLET PO (21:41)
[2019-01-24] MEDS: INSULIN GLARGINE 100 UNIT/ML 3ML PEN 36 UNIT SUBCUT (21:44)
[2019-01-24] MEDS: TACROLIMUS 0.5 MG CAPSULE 1 MG PO (21:47)
[2019-01-25] VITALS (12 sets, daily range): BP systolic 120–156; BP diastolic 62–72; PULSE 62–68; RESP 16–18; TEMP 36.1–36.9; O2SAT 88–99
[2019-01-25] MEDS: ACETAMINOPHEN 325 MG TABLET 650 MG PO ×2 (00:08→20:58)
--- NOTE | 2019-01-25 02:50 | PC.NURSE ---
Rock Wool Applicator Note: 0010: Awake, complaining of headache. Medicated with 2 Tylenol. at bedside. Pt alert, oriented X3. Vital signs stable. IV in place in lt hand. Pt resting in bed, respirations unlabored.
[2019-01-25] MEDS: LEVOTHYROXINE 100 MCG TABLET PO (05:46)
[2019-01-25 06:27] LABS: INR 1.9 (0.9-1.3); Prothrombin Time 21.9 SECONDS (10.1-12.7)
--- NOTE | 2019-01-25 08:35 | P.PN_ITS ---
Subjective Date Patient Seen: 01/25/19 Time Patient Seen: 08:32 Interval history: Patient had another episode of hypoglycemia this morning. Now wake and alert but was really quite symptomatic with blood sugar in the 40s Had some loose stool yesterday. [place] too weak to participate with physical therapy yesterday. Still coughing and that bothers her a whole bunch. Says her breathing actually feels okay and her oxygen requirements have continued to decline, was off oxygen for a while yesterday currently on 1.5 L Her head pain has diminished significantly although still present inte rmittently. Exam Vital Signs (past 8 hours): - 01/25/19 05:49 01/25/19 08:00 Temperature 97.7 F 97 F L Pulse Rate 63 66 Respiratory Rate 16 18 Blood Pressure 156/62 H 120/62 Pulse Oximetry 92 96 Oxygen Delivery Method Room Air Oxygen Flow Rate 2.5 Narrative Exam Narrative: Unchanged from previous Objective Labs Result Diagrams: 01/23/19 07:05 01/24/19 05:49 Labs: Laboratory Results - last 24 hr 01/25/19 05:42 PT 21.9 H D INR 1.9 H Assessment & Plan Assessment & Plan narrative: 1. Pneumonia- continue with current therapies. Clinically from a pure pulmonary standpoint seems to be improving. Cough will be 1 of the last things to improve however and I continue to reinforce that with the patient 2 renal-again seems stable. Electing not to repeat labs on a daily basis at this point 3. Diabetes-uncertain as to what the etiology of her intermittent hyperglycemia combined with the hypoglycemia is. She tells me she did have her insulin specifically the Lantus significantly reduced by Endocrinology within the last month she was taking 25 units of Lantus twice daily at home. I am going to back off on the Lantus given the hypoglycemia which is obviously much more of a concern that the hyperglycemia. I did readjust her coverage insulin to higher levels and will see if that can control her sugar. I also readjusted her diet to reduce the carbohydrate content. I think if we can get some more activity out of her that would help with her blood sugar control as well. We discussed that at some level today as well. 4. Cardiac-not an active issue at this point. Asymptomatic. 5. Head pain-please that is improved somewhat. Continue with current meds without change. No obvious side effects from the cyclobenzaprine or the nortriptyline yesterday 6. Coagulopathy- INR now 1.9. Will resume warfarin tonight. Note: Greater than 30 minutes was spent evaluating the patient on the floor, including examining the patient, discussing clinical course with clinical and nursing staff, reviewing clinical course in the computer, preparing documentation and writing orders for continued management of care, discussing status with family as appropriate, reviewing plans for the next 24 hours with both patient/family and nursing staff as appropriate. Quality VTE Deep Vein Thrombosis/Pulmonary Embolism Present on Admission: No
[2019-01-25] MEDS: ALBUTEROL/IPRATROPIUM 3 ML AMPUL INH ×2 (09:00→13:44)
[2019-01-25] MEDS: DORZOLAMIDE/TIMOLOL OPHTH 10 ML 1 DROPS EYE-BOTH ×2 (09:44→20:44)
[2019-01-25] MEDS: BRIMONIDINE 0.15% OPHTH 5 ML 1 DROPS EYE-BOTH ×2 (09:44→20:44)
[2019-01-25] MEDS: MYCOPHENOLATE MOFETIL 500 MG TABLET PO ×2 (09:44→20:44)
[2019-01-25] MEDS: CYCLOBENZAPRINE 5 MG TABLET PO ×3 (09:45→20:44)
[2019-01-25] MEDS: FELODIPINE ER 5 MG TAB 10 MG PO (09:46)
[2019-01-25] MEDS: FUROSEMIDE 40 MG TABLET PO ×2 (09:46→20:44)
[2019-01-25] MEDS: METFORMIN XR 500 MG TABLET PO ×2 (09:50→20:44)
[2019-01-25] MEDS: IRBESARTAN 150 MG TABLET PO (09:50)
[2019-01-25] MEDS: METOPROLOL ER 50 MG TABLET PO (09:50)
[2019-01-25] MEDS: TACROLIMUS 0.5 MG CAPSULE 1.5 MG PO (09:50)
[2019-01-25] MEDS: PRAVASTATIN 20 MG TABLET 80 MG PO (09:51)
[2019-01-25] MEDS: predniSONE 5 MG TABLET PO (09:51)
[2019-01-25] MEDS: SODIUM CHLORIDE 0.9% FLUSH 10 ML IV ×3 (09:51→20:45)
[2019-01-25] MEDS: INSULIN GLARGINE 100 UNIT/ML 3ML PEN 28 UNIT SUBCUT ×2 (10:03→20:49)
[2019-01-25] MEDS: AZITHROMYCIN 250 MG in DEXTROSE 5% IN WATER 250 ML 25 ML IV (10:27)
--- NOTE | 2019-01-25 10:54 | PT.IIE ---
Current Diagnoses Pneumonia, unspecified organism (01/21/19) Surgical History (Last Reviewed 01/21/19 @ 10:04 by Hi Lopez MD) S/P cardiac pacemaker procedure (Inactive) H/O kidney transplant (Inactive ~2004) Renal transplant recipient (Resolved) History of cataract extraction with lens replacement (Inactive) Medical History (Last Reviewed 01/21/19 @ 10:04 by Hi Lopez MD) Diabetes type 2, controlled (Chronic) Coronary artery disease (Chronic) Peripheral vascular disease (Chronic) Diabetic retinopathy (Chronic) Glaucoma (Chronic) Chronic gout (Chronic) HTN (hypertension), benign (Chronic) History of peritoneal dialysis (Inactive) Physical Therapy Inpatient Evaluation/Re-Eval M1 PT/OT-IP Prior Functional Status Start: 01/22/19 15:10 Freq: NEEDED Status: Active Protocol: Document 01/25/19 10:54 DLM (Rec: 01/25/19 14:02 DLM [id number]) Medical Review Prior Functional Status Medical History Reviewed Yes: kidney transplant, pacemaker Diet/Fluid Consistency Regular Communication WFL, low vision due to glaucoma and retinopathy Mobility and Gait Pt states she ambulates independently without a device , but has limited endurance for prolonged walking e.g. in grocery store. She reports left hip pain limits her walking. Using a grocery cart in stores helps her. Activities of Daily Living and IADL's Pt states she is independent with all self care including standing to shower in tub shower combo. Pt does most of the cooking. 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 Her manages medications, finances. Prior Functional Level (Other details) Pt has not driven for 20 years due to low vision. Social History Household Members spouse Living Arrangements House Number of Floors (Floors) Two Floors Number of Stairs To Enter/Railing? 1 step to enter; pt. stay on main level, they do not use upstairs level Home Environment Standard Height Toilet Tub/Shower Home Equipment Grab Bars In Shower Employment Status Retired Additional Social History Comment Supprotive, protective can provide 24 hr assist at d /c. He walks with cane. M2 PT-IP Current Condition Start: 01/24/19 11:25 Freq: NEEDED Status: Active Protocol: Document 01/25/19 10:54 DLM (Rec: 01/25/19 14:02 DLM [id number]) Physical Therapy Current Condition Current Condition Evaluation Date 01/25/19 Treatment Diagnosis PNA, impaired gait and activity tolerance Onset Date 01/21/19 Precautions Other Precautions Oxygen needs M3 PT-IP Subjective Start: 01/24/19 11:25 Freq: NEEDED Status: Active Protocol: Document 01/25/19 10:54 DLM (Rec: 01/25/19 14:02 DLM [id number]) Subjective Physical Therapy Visit Type Type Initial Evaluation Visit Start Time 10:20 Visit Stop Time 10:54 Total Visit Minutes 34 Number of EMERGENCY DEPARTMENT NURSE Visits 0 Physical Therapy Visit Comments Patient Comments she does not want to use a walker nor a cane, her Spouse voices concern about pt doing too much Patient Goals discharge home, does not want to have oxygen at home Therapy Pain Assessment Pain When Pain Assessed During Mobility Pain Present Pain Present Denied Pain M4 PT-IP Mobility and Gait Start: 01/24/19 11:25 Freq: NEEDED Status: Active Protocol: Document 01/25/19 10:54 DLM (Rec: 01/25/19 14:02 DLM [id number]) PT-Bed Mobility Assessment Rolling Level of Assist Independent Supine to Sit Supine to Sit Standby Assistance Sit to Supine Sit to Supine Standby Assistance Scooting Scooting to Edge of Bed Independent PT-Transfer Assessment Sit to and From Stand Sit to and from Stand Standby Assistance Use of Upper Extremities Equipment Transfer Assistive Device None Transfers Transfer Destination Chair Toilet Transfer Technique Stand Step Pivot Transfer Ability Level of Assist Standby Assistance Gait Assessment Gait Gait Assistance Required: Standby Assistance Distance (Feet) 130 Gait Deviations General Gait Pattern Antalgic Factors Limiting Gait Function Factors Limiting Gait Function Decreased Activity Tolerance Decreased Strength Pain Comments Gait Comments pt refused to use assistive device, I assisted her with her oxygen tank (she does not use O2 at baseline) PT-Balance Assessment Sitting Balance and Reactions Static Sitting Balance Ability Good Dynamic Sitting Balance Ability Good Standing Balance and Reactions Static Standing Balance Ability Good Dynamic Standing Balance Ability Fair Device Used pt refused M5 PT-IP Objective Assessments Start: 01/24/19 11:25 Freq: NEEDED Status: Active Protocol: Document 01/25/19 10:54 DLM (Rec: 01/25/19 14:02 DLM [id number]) Orientation Orientation/Cognition Level of Alertness Alert Orientation Name Age Birthday Month Date Year Day of Week Place Situation Language Function Ability No Deficits Noted Safety Awareness Decreased Safety Awareness Memory Description No Deficits Noted Comments she is reluctant to work with physical therapy, makes excuses such as having an IV to not work with PT, she needs a lot of encouragement to increase her activity level, pt spending most of her time in bed, Spouse is present but does not encourage her to be active but gives reason to limit or avoid activity Gross Range of Motion Upper Extremity ROM Assessment Within Functional Limits Lower Extremity ROM Assessment Within Functional Limits Impairments pain left hip Strength Upper Extremity Strength Assessment Within Functional Limits Lower Extremity Strength Assessment Left Impaired Hip functional weakness during gait with c/o pain, unstable in stance Coordination Assessment Gross Coordination Gross Coordination WNL Sensation Assessment Comments Sensation Comments no changes reported by patient Muscle Tone Muscle Tone WNL Yes M6 PT-IP Treatment Start: 01/24/19 11:25 Freq: NEEDED Status: Active Protocol: Document 01/25/19 10:54 DLM (Rec: 01/25/19 14:02 [facility] [id number]) Physical Therapy Treatment Exercises Exercises Ankle Pumps Education Education Provided Safety M7 PT-IP Assessment and Plan Start: 01/24/19 11:25 Freq: NEEDED Status: Active Protocol: Document 01/25/19 10:54 DLM (Rec: 01/25/19 14:02 DL [id number]) PT Summary Assessment and Plan Potential Rehabilitation Potential Good Status of Condition at Evaluation Evolving Frequency of Treatment Frequency Of Treatment Once a Day Treatment Plan Physical Therapy Treatment Plan Gait Training Therapeutic Exercise Discharge Planning Other Recommendations and Next Treatment monitor oxygen levels with/ Focus without supplemental oxygen Recommendations To Nursing Amount of Assist Needed Standby Assistance Discharge Recommendations PT Discharge Recommendations Home with Assistance
[2019-01-25] MEDS: INSULIN ASPART 100 UNIT/ML INSULN PEN SUBCUT ×2 (12:23→16:40)
--- NOTE | 2019-01-25 14:26 | OT.IP.TRT ---
Current Diagnoses Pneumonia, unspecified organism (01/21/19) Occupational Therapy Treatment Note M2 OT-IP Current Condition Start: 01/22/19 15:10 Freq: Status: Active Protocol: Document 01/23/19 10:59 PJM (Rec: 01/23/19 14:28 PJ [id number]) Occupational Therapy Current Condition Current Condition Evaluation Date 01/23/19 Treatment Diagnosis decreased activity tolerance, mobility, self care skills; DX : PNA,CHF Diagnosis Onset Date 01/21/19 Post Operative Precautions Other Precautions fall risk 2L O2 this session, monitor O2 sats M3 OT- IP Subjective and Pain Start: 01/22/19 15:10 Freq: Status: Active Protocol: Document 01/25/19 14:26 PJM (Rec: 01/25/19 15:03 [facility] [id number]) OT- Subjective Occupational Therapy Visit Type Type Treatment Note Visit Start Time 14:12 Visit Stop Time 14:26 Total Visit Minutes 24 Notes Pt's observing this session. He tends to get in pt's way at times with pt directing him to move. Pt initially refusing tc, requiring bargaining to get her to agree to mobilize out of chair. Note pt hypoglycemic this AM, but blood glucose checked just prior to this tx and was high at 300+ per THEATRICAL TROUPER. Occupational Therapy Visit Comments Patient Comments Let's just get this done. Get out of my way. I will not wear that belt. Patient/Caregiver Goals to go home without O2 OT Pain Assessment Pain When Pain Assessed After Treatment Pain Present Pain Present Denied Pain M4 OT- IP ADL's Start: 01/22/19 15:10 Freq: Status: Active Protocol: Document 01/25/19 14:26 PJM (Rec: 01/25/19 15:03 [facility] [id number]) OT ADL-Grooming General Evaluation Grooming Ability Standby Assistance Comments OT Grooming Comments pt stood at sink to wash hands with no loss of balance noted OT ADL-Oral Care Comments Oral Care Comments pt declined this session OT ADL-Toileting General Evaluation Toileting Ability Independent Areas Needing Assistance Manage Clothing Perform Perineal Hygiene Devices Toileting Assistive Devices Grab Bars Comments OT Toileting Comments after urination OT ADL-Bathing Comments OT Bathing Comments pt states she would consider M7 OT- IP Mobility and Balance Start: 01/22/19 15:10 Freq: Status: Active Protocol: Document 01/25/19 14:26 PJM (Rec: 01/25/19 15:03 [facility] [id number]) OT-Transfer Assessment Sit to and From Stand Sit to and from Stand Standby Assistance 1 Person Assistance Transfers Transfer Ability Standby Assistance 1 Person Assistance Technique Transfer Destination Chair Toilet Transfer Technique Stand Step Pivot Devices Transfer Assistive Devices None Comments Mobility Comments Pt adamantly refusing gait belt and FWW use. She is unsteady on her feet when first arising and reaches for furniture, counter and wall for support. Note pt's uses cane and could not provide assist to pt with gait at home. Pt more steady as session progressed. OT- Gait Assessment Gait Gait Assistance Required: Standby Assistance Distance (Feet) 110 Assistive Devices Assistive Device None Comments Gait Ability Comments Pt moves impulsively and quickly and does not slow down even with verbal cuing. Pt educated re: energy conservation and pacing but does not modify behavior stating I don't care, I just want to get done with this and go sit down. O2 sats 94 then up to 100 after walking on 2L O2. OT- Balance Assessment Sitting Balance and Reactions Static Sitting Balance Ability Good Dynamic Sitting Balance Ability Good Standing Balance and Reactions Static Standing Balance Ability Good M Protocol: Document 01/25/19 14:26 PJ (Rec: 01/25/19 15:03 [facility] [id number]) OT Summary Assessment and Plan Potential Rehabilitation Potential Fair Summary OT Impairments Functional Cognition Functional Mobility Bathing Shower Transfers Progress Towards Goals Progressing Toward Goals Assessment Summary Pt making progress with activity tolerance but quite difficult to engage in therapy tasks requiring extensive bargaining to get her to participate in 2 walks per day. Discussed with RN and posted sign on white board to have pt walk to bathroom during day to increase activity level and only use bedside commode at night. Pt presents with decreased insight into how increasing activity and using energy conservation/pacing principles will increase her strength and activity tolerance. She refuses ambulation aids that would decrease her fall risk. unable to assist pt with gait at home as he uses cane. He appears to have some short term memory deficits plus appears MINTO and this interferes with communication at times. states he manages pt's many medications at home. Pt will likely refuse any recommendation for SNF rehab, therefore recommend HH PT/OT/ RN at d/c to increase independence/endurance/safety in home setting and assist pt/ with medication and diabetes management. Goals Grooming Goal Independent Dressing Goal Independent Toileting Goal Independent Bathing Goal Standby Assistance Toilet Transfer Goal Independent Shower Transfer Goal Standby Assistance Shower Chair Patient/Caregiver Education Goal Demonstrate Energy Conservation and Pacing Caregiver Independent Assisting Patient OT-Other Goals Grooming to be done standing at sink 5 min with no loss of balance and good safety awareness. Days to Meet Goals 2 Frequency of Treatment Frequency Of Treatment Once a Day Treatment Plan OT Treatment Plan ADL Training Functional Mobility Patient/Family Education Discharge Planning Discharge Recommendations OT Discharge Recommendations Home with 04/04 Assist Other Discharge Recommendations OT/PT/RN Home Equipment Needs shower seat, long bath sponge provided; pt may need bedside commode for night use pending progress here
[2019-01-25] MEDS: WARFARIN 3 MG TABLET PO (16:38)
[2019-01-25] MEDS: TACROLIMUS 0.5 MG CAPSULE 1 MG PO (20:44)
[2019-01-25] MEDS: PANTOPRAZOLE 40 MG TABLET PO (20:44)
[2019-01-25] MEDS: NORTRIPTYLINE 10 MG CAPSULE PO (20:45)
[2019-01-26] VITALS (14 sets, daily range): BP systolic 128–146; BP diastolic 58–72; PULSE 65–76; RESP 14–20; TEMP 36.3–36.8; O2SAT 88–99
--- NOTE | 2019-01-26 00:27 | PC.NURSE ---
Addendum entered by Michele Wiseman R.N. 01/26/19 03:24: 0035: CBG 108. 0200: CBG 211. Original Note: Grease Packer Note: 2315: Pt awake, asking for a check on her blood sugar, due to feeling sweaty and ill. CBG 40. [place] juice and Ensure clear given. 2330: CBG 43. 0000: CBG 58. Call to Dr. Waters to report drop in blood sugar. New orders are to start D5 1/2NS at 40cc/hr. 0030: CBG 108. Pt alert, sitting up talking to . Vital signs stable. IV in place in lt wrist.
[2019-01-26] MEDS: DEXTROSE 5%-0.45% NS 1,000 ML 40 ML IV (01:15)
[2019-01-26] MEDS: LEVOTHYROXINE 100 MCG TABLET PO (06:05)
--- NOTE | 2019-01-26 07:05 | PM.PN.1 ---
Subjective Date Patient Seen: 01/26/19 Time Patient Seen: 07:06 Interval history: Patient had another hypoglycemic episode late last night. Despite trying to treat with oral supplementation she persisted with her hypoglycemia and eventually a slow IV drip with dextrose was initiated. This did seem to help her blood sugars last couple times a been checked now within the last several hours been 150+ Patient was symptomatic but is much improved now with blood sugar better Was up with physical therapy yesterday. Was up walking minimally in the halls felt like that was okay. No respiratory issues The head pain has mostly resolved still gets the sharp stabbing pain mostly on the left side of her neck in towards her ear Exam Vital Signs (past 8 hours): - 01/25/19 23:15 01/26/19 06:00 Temperature 98.4 F 97.6 F Pulse Rate 68 75 Respiratory Rate 18 16 Blood Pressure 136/72 128/66 Pulse Oximetry 98 96 Oxygen Delivery Method Nasal Cannula Oxygen Flow Rate 1.5 Narrative Exam Narrative: Unchanged from previous Objective Labs Result Diagrams: 01/23/19 07:05 01/27/19 06:19 Assessment & Plan Assessment & Plan narrative: 1. Pneumonia-continue current meds, seems to be improving clinically 2. Renal-stable. Again choosing not to check as it has been stable but will probably due sometime over the weekend 3. Diabetes-more difficult to explain patient's persistent hypoglycemia. Her insulin doses seems obviously to be excessive. She had had her insulin reduce just prior to admission to the hospital and she is having administered by nurses here instead of doing it herself so perhaps her some difference in administration and/or absorption based on administration. In any event I think at this point we need to back off on her insulin to prevent any more hypoglycemia. She likely will become hyperglycemic and then we can slowly go the other direction of begin to increase her insulin both long-acting and short-acting. For now I have cut back on her long-acting insulin and changed her coverage insulin back to previous levels. I have discontinued her IV dextrose as well, as her numbers have been quite stable 4. Coagulopathy-resumed warfarin yesterday. Plan to recheck protime tomorrow Note: Greater than 30 minutes was spent evaluating the patient on the floor, including examining the patient, discussing clinical course with clinical and nursing staff, reviewing clinical course in the computer, preparing documentation and writing orders for continued management of care, discussing status with family as appropriate, reviewing plans for the next 24 hours with both patient/family and nursing staff as appropriate. Quality VTE Deep Vein Thrombosis/Pulmonary Embolism Present on Admission: No
[2019-01-26] MEDS: BRIMONIDINE 0.15% OPHTH 5 ML 1 DROPS EYE-BOTH ×2 (07:58→20:48)
[2019-01-26] MEDS: DORZOLAMIDE/TIMOLOL OPHTH 10 ML 1 DROPS EYE-BOTH ×2 (07:58→20:52)
[2019-01-26] MEDS: FELODIPINE ER 5 MG TAB 10 MG PO (07:59)
[2019-01-26] MEDS: CYCLOBENZAPRINE 5 MG TABLET PO ×3 (07:59→20:51)
[2019-01-26] MEDS: ACETAMINOPHEN 325 MG TABLET 650 MG PO (08:00)
[2019-01-26] MEDS: FUROSEMIDE 40 MG TABLET PO ×2 (08:01→20:52)
[2019-01-26] MEDS: METOPROLOL ER 50 MG TABLET PO (08:03)
[2019-01-26] MEDS: IRBESARTAN 150 MG TABLET PO (08:03)
[2019-01-26] MEDS: METFORMIN XR 500 MG TABLET PO ×2 (08:03→20:52)
[2019-01-26] MEDS: MYCOPHENOLATE MOFETIL 500 MG TABLET PO ×2 (08:04→20:52)
[2019-01-26] MEDS: PRAVASTATIN 20 MG TABLET 80 MG PO (08:05)
[2019-01-26] MEDS: TACROLIMUS 0.5 MG CAPSULE 1.5 MG PO (08:05)
[2019-01-26] MEDS: predniSONE 5 MG TABLET PO (08:05)
[2019-01-26] MEDS: SODIUM CHLORIDE 0.9% FLUSH 10 ML IV ×3 (08:06→21:50)
[2019-01-26] MEDS: ALBUTEROL/IPRATROPIUM 3 ML AMPUL INH ×2 (08:27→17:49)
[2019-01-26] MEDS: INSULIN GLARGINE 100 UNIT/ML 3ML PEN 20 UNIT SUBCUT ×2 (09:02→21:46)
[2019-01-26] MEDS: AZITHROMYCIN 250 MG in DEXTROSE 5% IN WATER 250 ML IV (10:35)
--- NOTE | 2019-01-26 11:29 | CM.DPNOTE ---
Reviewed chart. Pt discussed in muli-disciplinary rounds. From a physical therapy standpoint, pt is cleared to return home w/assist. According to Dr Bustos's note; pt continues to have blood sugars that are labile, she requires at least another 24-48hrs here for continued medical management before she is safe to return home w/close outpt f/u. LITERATURE PROFESSOR will remain available to address any DC needs or concerns that might arise. DIMAS Cho
[2019-01-26] MEDS: INSULIN ASPART 100 UNIT/ML INSULN PEN SUBCUT ×2 (14:06→16:57)
--- NOTE | 2019-01-26 14:11 | OT.IP.TRT ---
Current Diagnoses Pneumonia, unspecified organism (01/21/19) Occupational Therapy Treatment Note M2 OT-IP Current Condition Start: 01/22/19 15:10 Freq: Status: Active Protocol: Document 01/23/19 10:59 PJM (Rec: 01/23/19 14:28 PJM [id number]) Occupational Therapy Current Condition Current Condition Evaluation Date 01/23/19 Treatment Diagnosis decreased activity tolerance, mobility, self care skills; DX : PNA,CHF Diagnosis Onset Date 01/21/19 Post Operative Precautions Other Precautions fall risk 2L O2 this session, monitor O2 sats M3 OT- IP Subjective and Pain Start: 01/22/19 15:10 Freq: Status: Active Protocol: Document 01/26/19 14:11 CCC (Rec: 01/26/19 14:11 CCC [id number]) OT- Subjective Occupational Therapy Visit Type Type Patient Refusal Notes Pt refused x2 and states open to shower with OT tomorrow.
--- NOTE | 2019-01-26 14:40 | PT.IPTN ---
Current Diagnoses Pneumonia, unspecified organism (01/21/19) Physical Therapy Treatment Note M2 PT-IP Current Condition Start: 01/24/19 11:25 Freq: NEEDED Status: Active Protocol: Document 01/25/19 10:54 DLM (Rec: 01/25/19 14:02 DLM [id number]) Physical Therapy Current Condition Current Condition Evaluation Date 01/25/19 Treatment Diagnosis PNA, impaired gait and activity tolerance Onset Date 01/21/19 Precautions Other Precautions Oxygen needs M3 PT-IP Subjective Start: 01/24/19 11:25 Freq: NEEDED Status: Active Protocol: Document 01/26/19 14:40 GGD (Rec: 01/26/19 15:16 GGD [id number]) Subjective Physical Therapy Visit Type Type Treatment Note Visit Start Time 14:20 Visit Stop Time 14:40 Total Visit Minutes 20 Number of HOSE BUILDER Visits 1 Physical Therapy Visit Comments Patient Comments Pt would like to go back to bed. M4 PT-IP Mobility and Gait Start: 01/24/19 11:25 Freq: NEEDED Status: Active Protocol: Document 01/26/19 14:40 GGD (Rec: 01/26/19 15:16 GGD [id number]) PT-Transfer Assessment Sit to and From Stand Sit to and from Stand Standby Assistance Use of Upper Extremities Equipment Transfer Assistive Device None Transfers Transfer Destination Chair Toilet Transfer Technique Stand Step Pivot Transfer Ability Level of Assist Standby Assistance Gait Assessment Gait Gait Assistance Required: Standby Assistance Distance (Feet) 50 Assistive Devices Assistive Device None Gait Belt Gait Deviations General Gait Pattern Antalgic Factors Limiting Gait Function Factors Limiting Gait Function Decreased Activity Tolerance Decreased Strength Pain M5 PT-IP Objective Assessments Start: 01/24/19 11:25 Freq: NEEDED Status: Active Protocol: Document 01/25/19 10:54 DLM (Rec: 01/25/19 14:02 DLM [id number]) Orientation Orientation/Cognition Level of Alertness Alert Orientation Name Age Birthday Month Date Year Day of Week Place Situation Language Function Ability No Deficits Noted Safety Awareness Decreased Safety Awareness Memory Description No Deficits Noted Comments she is reluctant to work with physical therapy, makes excuses such as having an IV to not work with PT, she needs a lot of encouragement to increase her activity level, pt spending most of her time in bed, Spouse is present but does not encourage her to be active but gives reason to limit or avoid activity Gross Range of Motion Upper Extremity ROM Assessment Within Functional Limits Lower Extremity ROM Assessment Within Functional Limits Impairments pain left hip Strength Upper Extremity Strength Assessment Within Functional Limits Lower Extremity Strength Assessment Left Impaired Hip functional weakness during gait with c/o pain, unstable in stance Coordination Assessment Gross Coordination Gross Coordination WNL Sensation Assessment Comments Sensation Comments no changes reported by patient Muscle Tone Muscle Tone WNL Yes M6 PT-IP Treatment Start: 01/24/19 11:25 Freq: NEEDED Status: Active Protocol: Document 01/25/19 10:54 DLM (Rec: 01/25/19 14:02 DLM [id number]) Physical Therapy Treatment Exercises Exercises Ankle Pumps Education Education Provided Safety M7 PT-IP Assessment and Plan Start: 01/24/19 11:25 Freq: NEEDED Status: Active Protocol: Document 01/26/19 14:40 GGD (Rec: 01/26/19 15:16 GGD [id number]) PT Summary Assessment and Plan Summary Assessment Summary Pt improving with mobility. She had mild unsteadiness with gait, but no LOB. Pt had good awareness of O2 line. Pt plans on D/C home when medically stable. Frequency of Treatment Frequency Of Treatment Once a Day Treatment Plan Physical Therapy Treatment Plan Gait Training Therapeutic Exercise Discharge Planning Other Recommendations and Next Treatment monitor oxygen levels with/ Focus without supplemental oxygen Recommendations To Nursing Amount of Assist Needed Standby Assistance Discharge Recommendations PT Discharge Recommendations Home with Assistance
[2019-01-26] MEDS: WARFARIN 3 MG TABLET PO (16:57)
[2019-01-26] MEDS: TACROLIMUS 0.5 MG CAPSULE 1 MG PO (20:52)
[2019-01-26] MEDS: PANTOPRAZOLE 40 MG TABLET PO (20:52)
[2019-01-26] MEDS: NORTRIPTYLINE 10 MG CAPSULE 20 MG PO (20:52)
[2019-01-27] VITALS (8 sets, daily range): BP systolic 110–142; BP diastolic 58–60; PULSE 65–85; RESP 14–18; TEMP 36.3; O2SAT 94–99
[2019-01-27] MEDS: ALBUTEROL/IPRATROPIUM 3 ML AMPUL INH ×2 (05:15→11:27)
[2019-01-27] MEDS: LEVOTHYROXINE 100 MCG TABLET PO (05:45)
--- NOTE | 2019-01-27 05:51 | PC.NURSE ---
Pt doing well. Tolerated 1.5L NC overnight, saturating at 97%. Placed on room air this morning, saturating at 97% no issues. Fingerstick at 0230= 87. 2 OJ with a sugar packet and 2 packages of spencer crackers. Fingerstick at 0330= 117 No blood sugar issues overnight
[2019-01-27 06:48] LABS: INR 1.6 (0.9-1.3)
[2019-01-27 06:52] LABS: Blood Urea Nitrogen 58 mg/dL (7-17); Calcium 9.2 mg/dL (8.4-10.2); Carbon Dioxide 22 mmol/L (22-32); Chloride 105 mmol/L (98-107); Estimated Glomerular Filt Rate 53.6 mL/min (>60); Glucose 101 mg/dL (80-110); HEMOLYSIS < 15 (0-50); Sodium 138 mmol/L (137-145)
[2019-01-27] MEDS: predniSONE 5 MG TABLET PO (08:14)
[2019-01-27] MEDS: METOPROLOL ER 50 MG TABLET PO (08:14)
[2019-01-27] MEDS: IRBESARTAN 150 MG TABLET PO (08:14)
[2019-01-27] MEDS: BRIMONIDINE 0.15% OPHTH 5 ML 1 DROPS EYE-BOTH (08:14)
[2019-01-27] MEDS: DORZOLAMIDE/TIMOLOL OPHTH 10 ML 1 DROPS EYE-BOTH (08:14)
[2019-01-27] MEDS: FELODIPINE ER 5 MG TAB 10 MG PO (08:14)
[2019-01-27] MEDS: METFORMIN XR 500 MG TABLET PO (08:14)
[2019-01-27] MEDS: SODIUM CHLORIDE 0.9% FLUSH 10 ML IV (08:14)
[2019-01-27] MEDS: CYCLOBENZAPRINE 5 MG TABLET PO (08:14)
[2019-01-27] MEDS: TACROLIMUS 0.5 MG CAPSULE 1.5 MG PO (08:15)
[2019-01-27] MEDS: FUROSEMIDE 40 MG TABLET PO (08:15)
[2019-01-27] MEDS: MYCOPHENOLATE MOFETIL 500 MG TABLET PO (08:15)
[2019-01-27] MEDS: PRAVASTATIN 20 MG TABLET 80 MG PO (08:15)
[2019-01-27] MEDS: INSULIN GLARGINE 100 UNIT/ML 3ML PEN 20 UNIT SUBCUT (08:26)
--- NOTE | 2019-01-27 10:50 | P.DS_ITS ---
History of Present Illness Date Patient Seen: 01/27/19 Time Patient Seen: 10:45 Chief complaint: cough,sob Narrative: Patient admitted earlier this morning because of shortness of breath. She has had increasing shortness of breath since approximately Tuesday. No apparent fever. Minimal cough minimal cough production has had some nasal congestion as seen in response to Afrin nasal spray. No pedal edema no calf pain no chest pain she did seem to be breathe easier when she would sit up in a chair but still feeling short of breath. She is unaware whether not she has a diagnosis of COPD but she believe so. She was hospitalized in November of this year in [place] for respiratory dif ficulty. She believes it was from pneumonia. Her stated they were unable to find the ?pathogen? Patient has history of coronary artery disease, status post stent placement, atrial fibrillation, pacemaker placement. Her outsole leveler is Dr. Khoury in [place] and she actually had a routine appointment to see him in the office there tomorrow. She also has bilateral lower extremity stents for peripheral vascular disease No history of strokes. Patient has insulin-dependent diabetes has been on insulin for years. She also is status post kidney transplant perhaps over 15 years ago. Kidney failure due to diabetes. Patient taking prednisone as result of a kidney transplant. {from Dr. Lopez's history and physical January 21, 2019} Discharge Providers Date of admission: 01/21/19 00:54 Discharge Date: 01/27/19 Consults: 01/21/19 00:59 Consult to Physician Routine Comment: Consulting Provider: Hi Lopez Reason for consultation: admission Has provider been notified: Yes 01/21/19 09:47 Consult to Occupational Therapy Evaluate & Treat Comment: Physician Instructions: Evaluate and treat 01/21/19 09:59 Consult to Respiratory Therapy Evaluate & Treat Comment: Physician Instructions: Evaluate and treat 01/23/19 10:23 Consult to Physical Therapy Evaluate & Treat Comment: Physician Instructions: Evaluate and Treat 01/24/19 07:48 Consult to Respiratory Therapy Evaluate & Treat Comment: Physician Instructions: Evaluate and treat Discharge provider: Priyank Bustos MD Summary Discharge Diagnosis: 1. Community-acquired pneumonia 2. Hypoxia due to problem 1. 3. Acute respiratory failure, resolved 4. Type 2 diabetes on insulin, with poor control during this hospitalization 5. Coronary artery disease, stable this hospitalization 6. Status post kidney transplant distant past 7. Hypertension 8. Peripheral vascular disease 9. Chronic anticoagulation with coagulopathy iatrogenic during this hospitalization 10. Head pain Hospital Course: Patient was admitted to the hospital because of her respiratory failure hypoxia and diagnosis of pneumonia. She had a fairly large oxygen requirement initially. She was treated with appropriate antibiotic therapy for community-acquired pneumonia. Over time she had improvement clinically from a pneumonia standpoint with decreasing oxygen needs decreasing cough. By the day of discharge she was stable with acceptable oxygen saturations on room air even with minimal activity and she was felt to be ready for discharge. She also completed her course of antibiotic therapy while hospitalized. Patient's blood sugar was difficult to control during the hospitalization. She had hyperglycemia with blood sugars in the 300+ range insulin doses were increa sed and that she developed significant hypoglycemia. Insulin doses were then decreased and she again demonstrated some hyperglycemia although this was in combination with some intermittent hypoglycemia. Doses were slightly reduced upon discharge from her baseline given the instability in the knee to prevent hypoglycemia and as an outpatient can be increased to prevent long-term issues with hyperglycemia Patient also was coagulopathic during this hospitalization likely due to her illness and the antibiotics in combination with chronic warfarin therapy. Warfarin was held for several days her numbers improved towards normal as expected and this warfarin was restarted. She will need to get a protime checked within 48 hours after discharge from the hospital Patient's renal function was somewhat abnormal initially but improved after some gentle IV hydration and there were no active issues during the remainder of her hospitalization with her renal function knowing that she is status post kidney transplant years and years ago Status at Discharge Cognitive/behavioral status at discharge: at baseline, oriented Functional status at discharge: uses cane/walker Overall status at discharge: patient is progressing back to baseline Exam Vital Signs (past 8 hours): - 01/27/19 05:15 01/27/19 05:38 01/27/19 05:51 Temperature Pulse Rate 85 Respiratory Rate 18 Blood Pressure Pulse Oximetry 99 96 97 01/27/19 05:56 01/27/19 07:50 01/27/19 08:00 Temperature 97.4 F L 97.4 F L Pulse Rate 65 68 Respiratory Rate 16 14 Blood Pressure 110/58 L 142/60 H Pulse Oximetry 94 95 97 01/27/19 08:14 Temperature Pulse Rate Respiratory Rate Blood Pressure 142/60 H Pulse Oximetry Oxygen Delivery Method Room Air Oxygen Flow Rate 0 Narrative Exam Narrative: Unchanged from previous Objective Labs Result Diagrams: 01/23/19 07:05 01/27/19 06:19 Labs: Laboratory Results - last 24 hr 01/27/19 01/27/19 06:19 06:19 PT 18.0 H INR 1.6 H Sodium 138 Potassium 4.0 Chloride 105 Carbon Dioxide 22 BUN 58 H Creatinine 1.00 Estimated GFR 53.6 L BUN/Creatinine Ratio 58.0 H Glucose 101 Calcium 9.2 Discharge Plan Discharge Plan Patient Disposition: Home Discharge Med Rec/Prescriptions Prescriptions: New nortriptyline 10 mg Capsule 20 mg PO BEDTIME Qty: 60 RF: 5 Continued mycophenolate mofetil [CellCept] 500 MG tablet 1 tab PO BID Qty: 0 RF: 0 tacrolimus [Prograf] 0.5 MG capsule 1 tab PO BID Qty: 0 RF: 0 dorzolamide-timolol [Cosopt] 2 %/0.5 % drops 1 gtt OU BID Qty: 3 RF: 3 prednisone 5 mg tablet 5 mg PO DAILY RF: 0 febuxostat [Uloric] 40 mg tablet 40 mg PO DAILY RF: 0 felodipine 10 mg tablet extended release 24 hr 10 mg PO DAILY Qty: 0 RF: 0 furosemide 40 mg tablet 40 mg PO BID Qty: 0 RF: 0 levothyroxine 100 mcg capsule 100 mcg PO DAILY Qty: 90 RF: 3 metoprolol succinate [Toprol XL] 50 mg tablet extended release 24 hr 50 mg PO DAILY Qty: 0 RF: 0 pravastatin [Pravachol] 80 mg Tablet 80 mg PO DAILY RF: 0 pantoprazole 40 mg tablet,delayed release (DR/EC) 1 tab PO DAILY RF: 0 irbesartan [Avapro] 150 mg Tablet 150 mg PO DAILY RF: 0 metformin 500 mg tablet extended release 24 hr 1 tab PO BID RF: 0 tacrolimus 1 mg capsule 1 tab PO BID RF: 0 brimonidine 0.15 % drops 1 drp EYE-BOTH BID RF: 0 Changed insulin glargine 100 unit/mL solution 20 unit subcut BID Qty: 0 RF: 0 warfarin 3 mg tablet 3 mg PO DAILY Qty: 0 RF: 0 Follow up/Referrals: Priyank Bustos MD [Physician] - 2 Weeks Provider Discharge Instructions Diet: Carb-consistent/Diabetic Skin/Wound/Dressing Care Report to your healthcare provider any signs of infection, such as:: chills, fever Visit Report/Discharge Packet Instructions: DI for Pneumonia -- Adult, How to Prevent Falls, Cyclobenzaprine, Nortriptyline (By mouth) Discharge Data Attending Provider: Priyank Bustos Admit Date/Time: 01/21/19 00:54 Quality VTE Deep Vein Thrombosis/Pulmonary Embolism Present on Admission: No
--- NOTE | 2019-01-27 11:00 | PT.IPTN ---
Current Diagnoses Pneumonia, unspecified organism (01/21/19) Physical Therapy Treatment Note M2 PT-IP Current Condition Start: 01/24/19 11:25 Freq: NEEDED Status: Active Protocol: Document 01/25/19 10:54 DLM (Rec: 01/25/19 14:02 DLM [id number]) Physical Therapy Current Condition Current Condition Evaluation Date 01/25/19 Treatment Diagnosis PNA, impaired gait and activity tolerance Onset Date 01/21/19 Precautions Other Precautions Oxygen needs M3 PT-IP Subjective Start: 01/24/19 11:25 Freq: NEEDED Status: Active Protocol: Document 01/27/19 12:26 GGD (Rec: 01/27/19 12:27 GGD [id number]) Subjective Physical Therapy Visit Type Type Patient Refusal Notes Pt states she is d/c today and has no needs from PT. M4 PT-IP Mobility and Gait Start: 01/24/19 11:25 Freq: NEEDED Status: Active Protocol: Document 01/26/19 14:40 GGD (Rec: 01/26/19 15:16 GGD [id number]) PT-Transfer Assessment Sit to and From Stand Sit to and from Stand Standby Assistance Use of Upper Extremities Equipment Transfer Assistive Device None Transfers Transfer Destination Chair PT Discharge Recommendations Home with Assistance
[2019-01-27] MEDS: AZITHROMYCIN 250 MG in DEXTROSE 5% IN WATER 250 ML IV (11:11)
--- NOTE | 2019-01-27 14:35 | PC.NURSE ---
Pt dressed and ready for discharge home with Spouse. Question from Pt about resumption of Aspart insulin (this was not addressed on her med-list). Paged Dr. Bustos and he stated that Pt could resume her Aspart as prior to admit, Lantus 20 units BID, and Metformin 500. Reviewed d/c orders with Pt-discussed blood sugar hi/lo awareness and self monitoring. Reviewed stroke education, answered all questions and Pt agreed to make a follow up appointment with her PCP when the office is open. Pt out via w/c by CUSTODY ASSISTANT to POV with Spouse and all belongings.
== END 2019-01-27 14:43 | disposition home or self-care (01) | DRG 193 ==
LOC: ED 01-21 00:28 → AC 01-21 00:55
PROVIDERS: Admitting Provider Family Medicine; Emergency Provider Emergency Medicine; Visit Provider Internal Medicine
DX: J18.9 Pneumonia, unspecified organism (principal); J96.01 Acute respiratory failure with hypoxia; I21.A1 Myocardial infarction type 2; Z94.0 Kidney transplant status; E11.649 Type 2 diabetes mellitus with hypoglycemia without coma; E11.319 Type 2 diabetes mellitus with unspecified diabetic retinopathy without macular edema; E11.51 Type 2 diabetes mellitus with diabetic peripheral angiopathy without gangrene; I48.91 Unspecified atrial fibrillation; I25.10 Atherosclerotic heart disease of native coronary artery without angina pectoris; Z79.01 Long term (current) use of anticoagulants; Z95.0 Presence of cardiac pacemaker; R51 Headache; Z79.4 Long term (current) use of insulin
CPT/HCPCS: 36415; 36591; 71046; 80048; 80053; 81003; 81015; 82962; 83036; 83605; 83735; 83880; 84145; 84484; 85025; 85610; 87086; 87633; 93005; 93010; 93306; 94640; 94760; 97116; 97162; 97165; 97530; 97535; 99223; 99233; 99238; 99285; J1940; J7507

== ENCOUNTER 2019-06-24 09:08 | Emergency (ER) | payer MEDICARE, OTHER, SELFPAY ==
[2019-01-21 02:48] VITALS: BMI 28.8
[2019-06-24] VITALS (9 sets, daily range): BP systolic 123–148; BP diastolic 36–76; PULSE 66–70; RESP 20–26; TEMP 36.9; O2SAT 77–95; BMI 28.3
--- NOTE | 2019-06-24 09:17 | DI.RAD.S_ITS ---
PROCEDURE: XR CHEST 1V INDICATIONS: Shortness of breath TECHNIQUE: One view of the chest was acquired. COMPARISON: [facility], CR, CHEST 2 VIEW, 06/03/2008, 14:02. [facility], CR, CHEST 1 VIEW, 12/31/2016, 7:20. [facility], CT, PE STUDY (CTA CHEST), 12/31/2016, 8:36. [facility], CR, XR CHEST 2V, 01/20/2019, 21:57. FINDINGS: Surgical changes and devices: A pacer device is seen. Lungs and pleura: There is a small right-sided pleural effusion. Interstitial prominence is seen throughout. Mediastinum: Mediastinal contours appear normal. Heart size is at the upper limits normal. Atherosclerotic calcification of the aortic arch is noted. Bones and chest wall: No suspicious bony lesions. Age-appropriate bony degenerative changes are seen. Overlying soft tissues appear unremarkable. IMPRESSION: Small right-sided pleural effusion. Interstitial prominence is seen throughout. The interstitial prominence is nonspecific, yet may be related to pulmonary edema. Postoperative and degenerative changes are seen. Dictated by: Gareth Gordon M.D. on 06/24/2019 at 9:10 Approved by: Gareth Gordon M.D. on 06/24/2019 at 9:11
--- NOTE | 2019-06-24 09:43 | ED.SOB ---
HPI - SOB/Dyspnea General Chief Complaint: Shortness of Breath/Dyspnea Stated Complaint: sob/on anti. [id number] Time Seen by Provider: 06/24/19 09:15 Source: patient Mode of arrival: Wheelchair Limitations: no limitations History of Present Illness HPI Narrative: Patient is a 79-year-old female. Is an insulin-dependent diabetic. Has had a kidney transplant in the past. Is not currently on dialysis. Patient also states she has a history of CHF. She also states she has a history of COPD. Is not on home oxygen. States that for the past 10 days she has had chest congestion. Has been taking guaifenesin which he thinks may be has been helping her symptoms however she is not coughing anything up. No fevers. Has on daily prednisone. Reports the emergency department today for shortness of breath. States that over the past couple days she has had to sleep sitting up because of the shortness of breath. Denies any chest pain. Related Data Home Medications Medication Instructions Recorded Confirmed mycophenolate mofetil [CellCept] 500 mg PO BID #0 03/17/12 06/24/19 tacrolimus [Prograf] 1 tab PO BID #0 03/17/12 06/24/19 metoprolol succinate 50 mg 50 mg PO DAILY #0 tab 04/25/18 06/24/19 tablet,extended release 24 hr prednisone 5 mg tablet 5 mg PO DAILY 04/25/18 06/24/19 brimonidine 1 drp EYE-BOTH BID 01/20/19 06/24/19 metformin 1 tab PO BID 01/20/19 06/24/19 pantoprazole 1 tab PO DAILY 01/20/19 06/24/19 pravastatin [Pravachol] 80 mg PO DAILY 01/20/19 06/24/19 tacrolimus 1 tab PO BID 01/20/19 06/24/19 febuxostat 40 mg tablet 40 mg PO DAILY 02/12/19 06/24/19 insulin aspart U-100 [Novolog 25 unit SUBCUT QID 06/24/19 06/24/19 Flexpen U-100 Insulin] insulin glargine 36 unit SUBCUT BID 06/24/19 06/24/19 Previous Rx's Medication Instructions Recorded dorzolamide-timolol [Cosopt] 1 gtt OU BID #3 bot 06/09/12 levothyroxine 100 mcg capsule 100 mcg PO DAILY #90 cap 04/25/18 warfarin 3 mg PO DAILY #0 tab 01/27/[address] #1 each 02/12/19 furosemide 40 mg tablet 40 mg PO BID #90 tab 03/22/19 irbesartan 150 mg tablet 150 mg PO DAILY #90 tab 03/22/19 felodipine 10 mg tablet,extended 10 mg PO DAILY #90 tab 05/17/19 release 24 hr One Touch Ultra Blue Test Strips #500 each 06/11/19 Allergies Allergy/AdvReac Type Severity Reaction Status Date / Time diphenhydramine Allergy Unknown Verified 06/24/19 09:15 [From BENADRYL] Penicillins [PENICILLINS] Allergy Unknown Verified 06/24/19 09:15 percodan Allergy Mild Uncoded 06/24/19 09:15 Review of Systems Constitutional Constitutional: Denies fever(s) Cardiovascular Cardiovascular: Denies chest pain, Reports dyspnea and Reports dyspnea on exertion Respiratory Respiratory: Reports chest congestion, Reports cough, Reports dyspnea and Reports dyspnea on exertion Gastrointestinal Gastrointestinal: Denies abdominal pain, Denies nausea and Denies vomiting Musculoskeletal Musculoskeletal: Denies myalgias and Denies arthralgias Integumentary/Breasts Skin/Breast: Denies lesions and Denies rash Neurologic Neurologic: Denies behavioral changes Psychiatric Psychiatric: Denies behavioral changes Hematologic/Lymphatic Hematologic/Lymphatic: Denies easy bleeding and Denies easy bruising Patient History Medical/Surgical History Medical History Chronic gout (Chronic) Coronary artery disease (Chronic) Diabetes type 2, controlled (Chronic) Diabetic retinopathy (Chronic) Glaucoma (Chronic) History of peritoneal dialysis (Inactive) HTN (hypertension), benign (Chronic) Peripheral vascular disease (Chronic) Family/Social History Family History Grandmother Thyroid cancer Other Cancer Social History marital status: number of children: 3 household members: spouse lives independently: Yes caregiver/support person: No housing: house pets and animals: No education level: college occupational status: 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 (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 travel history: recent ([place]) leisure activities: other (Food.) Smoking Status: Never smoker Tobacco: How many years used: 0 quit status: quit date established (Never Started) second hand exposure: Yes (Childhood/Young adulthood) alcohol intake: current substance use type: does not use alcohol intake frequency: 0-2 drinks per day Substance Use Type: does not use Exam Initial Vital Signs Initial Vital Signs: Vital Signs Temperature 98.4 F 06/24/19 09:15 Pulse Rate 70 06/24/19 09:15 Respiratory Rate 20 06/24/19 09:15 Pulse Oximetry 77 L 06/24/19 09:15 Const General: No comfortable and No acute distress Orientation: alert, awake and oriented x3 HENMT Head: normal to inspection and normocephalic Resp Effort & Inspection: labored and tachypneic Auscultation: diminished lung sounds Cardio Rate: regular rate Rhythm: regular rhythm Pulses: radial pulses present GI Inspection: non-distended Palpation: soft, No firm and No tender Skin Lesions: no lesions Rashes: no rashes Neuro General: alert and awake Cognition: normal cognition Speech: speech normal Extrem General: normal to inspection, capillary refill normal and No edema Psych Appearance: grossly normal and well kempt Scores GCS [place] coma scale eye opening: Spontaneous [place] coma scale verbal response: Orientated [place] coma scale motor response: Obey commands [place] coma scale total score: 15 Course Orders Ordered: ED Orders 06/24/19 09:17 XR chest 1V Stat RT Consult Eval and Treat Now 06/24/19 09:25 EKG-12 Lead Stat 06/24/19 10:06 B Type Natriuretic Peptide Stat Complete Blood Count AUTO DIFF Stat Comprehensive Metabolic Panel Stat Lipase Stat Procalcitonin Stat Troponin I Stat 06/24/19 11:31 Urine Culture Stat Urine Microscopic Stat 06/24/19 11:55 Lactate (Lactic Acid) Stat Partial Thromboplastin Time Stat Prothrombin Time INR Stat Discontinued Medications Albuterol/Ipratropium (Duoneb) 3 ml INH NOW ONE Stop: 06/24/19 09:41 Last Admin: 06/24/19 10:00 Dose: 3 ml Documented by: NISSA Furosemide (Lasix) 60 mg IV NOW ONE Stop: 06/24/19 10:37 Last Admin: 06/24/19 11:19 Dose: 60 mg Documented by: MT Ceftriaxone Sodium/Dextrose (Rocephin) 1 gm in 50 mls @ 100 mls/hr IV NOW ONE Stop: 06/24/19 10:11 Last Infusion: 06/24/19 10:46 Dose: 0 mls/hr Documented by: Admin: 06/24/19 10:04 Dose: 100 mls/hr Documented by: MT Azithromycin 500 mg/ Dextrose 250 mls @ 250 mls/hr IV NOW ONE Stop: 06/24/19 09:42 Last Infusion: 06/24/19 12:05 Dose: 0 mls/hr Documented by: Admin: 06/24/19 10:45 Dose: 250 mls/hr Documented by: MT Methylprednisolone (Solu-Medrol 125 Mg Vial) 125 mg IV NOW ONE Stop: 06/24/19 09:41 Last Admin: 06/24/19 10:04 Dose: 125 mg Documented by: MT Vital Signs Vital signs: Vital Signs - 8 hr 06/24/19 09:15 06/24/19 09:40 06/24/19 10:01 Temperature 98.4 F Pulse Rate 70 68 66 Respiratory Rate 20 26 H 24 Blood Pressure [Right Arm] 148/55 H Pulse Oximetry 77 L 95 94 06/24/19 10:20 06/24/19 10:40 06/24/19 11:22 Temperature Pulse Rate 67 68 67 Respiratory Rate 24 22 Blood Pressure [Right Arm] 135/53 L 147/49 H 147/49 H Pulse Oximetry 92 92 92 06/24/19 12:16 06/24/19 12:47 06/24/19 13:48 Temperature Pulse Rate 66 70 68 Respiratory Rate 20 20 Blood Pressure [Right Arm] 123/76 131/60 140/36 L Pulse Oximetry 91 94 91 MDM - SOB/Dyspnea Lab Data Attestation: I reviewed the patient's lab results. Result diagrams: 06/24/19 10:06 06/24/19 10:06 Labs: Lab Results 06/24/19 06/24/19 06/24/19 Range/Units 10:06 10:06 10:06 WBC 4.4 L (4.5-11.0) X10^3/uL RBC 3.69 L (4.0-5.2) X10^6/uL Hgb 8.8 L (12.0-16.0) g/dL Hct 28.8 L (36-46) % MCV 78.2 L (80-100) fL MCH 23.9 L (26-34) PG MCHC 30.5 (30-36) % RDW 20.2 H (11.6-14.8) % Plt Count 282 (150-400) X10^3/uL Neut % (Auto) 75.1 H (50-75) % Lymph % (Auto) 11.0 L (25-40) % [place] % (Auto) 12.6 (3-14) % Eos % (Auto) 0.7 L (2-4) % Baso % (Auto) 0.6 (0-2) % Neut # (Auto) 3300 (4890-3879) /uL Lymph # (Auto) 500 L (8742-4870) /uL [place] # (Auto) 600 (0-900) /uL Eos # (Auto) 0 (0-450) /uL Baso # (Auto) 0 (0-100) /uL RBC Morphology Not Reportable Anisocytosis 2+ H Ovalocytes 1+ H PT (10.1-12.7) SECONDS INR (0.9-1.3) APTT (26.4-36.2) SECONDS Sodium 142 (137-145) mmol/L Potassium 3.9 (3.4-5.1) mmol/L Chloride 106 (98-107) mmol/L Carbon Dioxide 24 (22-32) mmol/L BUN 46 H (7-17) mg/dL Creatinine 1.00 (0.52-1.04) mg/dL Estimated GFR 53.5 L (>60) mL/min BUN/Creatinine Ratio 46.0 H (6-22) Glucose 147 H (80-110) mg/dL Lactate (0.7-2.1) mmol/L Calcium 9.3 (8.4-10.2) mg/dL Total Bilirubin 1.2 (0.2-1.3) mg/dL AST 18 (14-36) IU/L ALT 16 (9-52) IU/L Alkaline Phosphatase 55 (38-126) U/L Troponin I 0.143 H* (0.01-0.034) ng/mL B-Natriuretic Peptide 781 H (<100) Total Protein 6.3 (6.3-8.2) g/dL Albumin 4.0 (3.5-5.0) g/dL Globulin 2.3 (1.7-4.1) g/dL Albumin/Globulin Ratio 1.7 (1.0-2.8) Lipase 26 (23-300) U/L Procalcitonin (<0.5) ng/mL Urine RBC (0-5/HPF) Urine WBC (0-5/HPF) Ur Squamous Epith Cells (0-5/HPF) Ur Transition Epith Cell (0-5/HPF) Urine Bacteria (None) Ur Culture Indicated? 06/24/19 06/24/19 06/24/19 Range/Units 10:06 11:31 11:55 WBC (4.5-11.0) X10^3/uL RBC (4.0-5.2) X10^6/uL Hgb (12.0-16.0) g/dL Hct (36-46) % MCV (80-100) fL MCH (26-34) PG MCHC (30-36) % RDW (11.6-14.8) % Plt Count (150-400) X10^3/uL Neut % (Auto) (50-75) % Lymph % (Auto) (25-40) % [place] % (Auto) (3-14) % Eos % (Auto) (2-4) % Baso % (Auto) (0-2) % Neut # (Auto) (8326-3498) /uL Lymph # (Auto) (5760-6091) /uL [place] # (Auto) (0-900) /uL Eos # (Auto) (0-450) /uL Baso # (Auto) (0-100) /uL RBC Morphology Anisocytosis Ovalocytes PT 59.5 H (10.1-12.7) SECONDS INR 5.0 H* (0.9-1.3) APTT 46 H (26.4-36.2) SECONDS Sodium (137-145) mmol/L Potassium (3.4-5.1) mmol/L Chloride (98-107) mmol/L Carbon Dioxide (22-32) mmol/L BUN (7-17) mg/dL Creatinine (0.52-1.04) mg/dL Estimated GFR (>60) mL/min BUN/Creatinine Ratio (6-22) Glucose (80-110) mg/dL Lactate (0.7-2.1) mmol/L Calcium (8.4-10.2) mg/dL Total Bilirubin (0.2-1.3) mg/dL AST (14-36) IU/L ALT (9-52) IU/L Alkaline Phosphatase (38-126) U/L Troponin I (0.01-0.034) ng/mL B-Natriuretic Peptide (<100) Total Protein (6.3-8.2) g/dL Albumin (3.5-5.0) g/dL Globulin (1.7-4.1) g/dL Albumin/Globulin Ratio (1.0-2.8) Lipase (23-300) U/L Procalcitonin < 0.05 (<0.5) ng/mL Urine RBC None seen (0-5/HPF) Urine WBC 5-10/hpf H (0-5/HPF) Ur Squamous Epith Cells 10-30 /hpf H D (0-5/HPF) Ur Transition Epith Cell 5-10/hpf H (0-5/HPF) Urine Bacteria Few (2-10) H (None) Ur Culture Indicated? Specimen cultured 06/24/19 Range/Units 11:55 WBC (4.5-11.0) X10^3/uL RBC (4.0-5.2) X10^6/uL Hgb (12.0-16.0) g/dL Hct (36-46) % MCV (80-100) fL MCH (26-34) PG MCHC (30-36) % RDW (11.6-14.8) % Plt Count (150-400) X10^3/uL Neut % (Auto) (50-75) % Lymph % (Auto) (25-40) % [place] % (Auto) (3-14) % Eos % (Auto) (2-4) % Baso % (Auto) (0-2) % Neut # (Auto) (1347-3093) /uL Lymph # (Auto) (5371-2221) /uL [place] # (Auto) (0-900) /uL Eos # (Auto) (0-450) /uL Baso # (Auto) (0-100) /uL RBC Morphology Anisocytosis Ovalocytes PT (10.1-12.7) SECONDS INR (0.9-1.3) APTT (26.4-36.2) SECONDS Sodium (137-145) mmol/L Potassium (3.4-5.1) mmol/L Chloride (98-107) mmol/L Carbon Dioxide (22-32) mmol/L BUN (7-17) mg/dL Creatinine (0.52-1.04) mg/dL Estimated GFR (>60) mL/min BUN/Creatinine Ratio (6-22) Glucose (80-110) mg/dL Lactate 0.9 (0.7-2.1) mmol/L Calcium (8.4-10.2) mg/dL Total Bilirubin (0.2-1.3) mg/dL AST (14-36) IU/L ALT (9-52) IU/L Alkaline Phosphatase (38-126) U/L Troponin I (0.01-0.034) ng/mL B-Natriuretic Peptide (<100) Total Protein (6.3-8.2) g/dL Albumin (3.5-5.0) g/dL Globulin (1.7-4.1) g/dL Albumin/Globulin Ratio (1.0-2.8) Lipase (23-300) U/L Procalcitonin (<0.5) ng/mL Urine RBC (0-5/HPF) Urine WBC (0-5/HPF) Ur Squamous Epith Cells (0-5/HPF) Ur Transition Epith Cell (0-5/HPF) Urine Bacteria (None) Ur Culture Indicated? Urine Dip Bedside Urine Glucose Negative Bedside Urine Bilirubin + 1 Bedside Urine Ketone - Negative Urine Specific [place] 1.010 Bedside Urine Occult Blood - Negative Bedside Urine pH 5.5 Bedside Urine Protein +/- 15 Bedside Urine Urobilinogen - Negative Bedside Urine Nitrite - Negative Bedside Urine Leukocytes +++ 500 Esterase Imaging Data Chest x-ray: Radiologist's impression: [address] [address] XRay Report Signed Patient: Jazmín [place] HMR#: [id number] : 1940Acct:[id number] Age/Sex: 79 / FDate of Service: 06/24/19 Loc: ED Accession Number: [id number] Procedure: XR chest 1V Ordering Provider: Grant Hernandez D.O. PROCEDURE: XR CHEST 1V INDICATIONS: Shortness of breath TECHNIQUE: One view of the chest was acquired. COMPARISON: [facility], CR, CHEST 2 VIEW, 06/03/2008, 14:02. [facility], CR, CHEST 1 VIEW, 12/31/2016, 7:20. [facility], CT, PE STUDY (CTA CHEST), 12/31/2016, 8:36. [facility], CR, XR CHEST 2V, 01/20/2019, 21:57. FINDINGS: Surgical changes and devices: A pacer device is seen. Lungs and pleura: There is a small right-sided pleural effusion. Interstitial prominence is seen throughout. Mediastinum: Mediastinal contours appear normal. Heart size is at the upper limits normal. Atherosclerotic calcification of the aortic arch is noted. Bones and chest wall: No suspicious bony lesions. Age-appropriate bony degenerative changes are seen. Overlying soft tissues appear unremarkable. IMPRESSION: Small right-sided pleural effusion. Interstitial prominence is seen throughout. The interstitial prominence is nonspecific, yet may be related to pulmonary edema. Postoperative and degenerative changes are seen. Dictated by: Gareth Gordon M.D. on 06/24/2019 at 9:10 Approved by: Gareth Gordon M.D. on 06/24/2019 at 9:11 ECG Data Attestation: I personally reviewed and interpreted this ECG as follows: Prior ECG tracings: not available for review Interpretation: Atrial E and ventricularly paced Ventricular rate is 70 Left bundle branch block morphology Nonspecific ST T wave change MDM Narrative Medical decision making narrative: Patient arrived hypoxic to the high 70s. This did improve with oxygen by nasal cannula. She remained very dyspneic especially with exerting herself even getting up to the bedside commode. She denies any chest pain. She is AV paced on her EKG. Her troponin is elevated. This could be secondary to CHF. Her INR is elevated however no signs of active bleeding. She was given 1 g Rocephin and 500 mg of azithromycin upon arrival for presumed pneumonia however the chest x-ray is not consistent with this. She was given 60 mg of Lasix IV. She normally takes 40 mg b.i.d.. This did result in some urine production. Her creatinine is relatively unremarkable specially given her kidney transplant status. I did discuss the case with Dr. Torres who was on-call for the patient's phlebotomy manager who stated that the elevated troponin is most likely secondary to CHF. I do not disagree with this. Her blood pressure did improve while she was here without any interventions. I then discussed the case with Dr. Rodas who is on-call for the hospitalist service who accepts the patient in transfer. I do feel that sending her to a facility that has specialist especially cardiology is warranted. I did discuss the transfer the patient in her who is at bedside. They both expressed understanding and agreement plan. Patient is stable for transport. Discharge Plan Departure Patient Disposition: [facility] Clinical Impression: Hypoxia Congestive heart failure Qualifiers: Heart failure type: unspecified Heart failure chronicity: unspecified Qualified Code(s): I50.9 - Heart failure, unspecified COPD (chronic obstructive pulmonary disease) Qualifiers: COPD type: unspecified COPD Qualified Code(s): J44.9 - Chronic obstructive pulmonary disease, unspecified Prescriptions: No Action mycophenolate mofetil [CellCept] 500 MG tablet 500 mg PO BID Qty: 0 RF: 0 tacrolimus [Prograf] 0.5 MG capsule 1 tab PO BID Qty: 0 RF: 0 dorzolamide-timolol [Cosopt] 2 %/0.5 % drops 1 gtt OU BID Qty: 3 RF: 3 (DME) One Touch Ultra Blue Test Strips Qty: 500 RF: 3 irbesartan [Avapro] 150 mg tablet 150 mg PO DAILY Qty: 90 RF: 3 furosemide 40 mg tablet 40 mg PO BID Qty: 90 RF: 3 felodipine 10 mg tablet extended release 24 hr 10 mg PO DAILY Qty: 90 RF: 3 prednisone 5 mg tablet 5 mg PO DAILY RF: 0 levothyroxine 100 mcg capsule 100 mcg PO DAILY Qty: 90 RF: 3 metoprolol succinate [Toprol XL] 50 mg tablet extended release 24 hr 50 mg PO DAILY Qty: 0 RF: 0 Uloric 40 mg tablet 40 mg PO DAILY RF: 0 (DME) Disabled Parking Qty: 1 RF: 0 pravastatin [Pravachol] 80 mg Tablet 80 mg PO DAILY RF: 0 pantoprazole 40 mg tablet,delayed release (DR/EC) 1 tab PO DAILY RF: 0 metformin 500 mg tablet extended release 24 hr 1 tab PO BID RF: 0 tacrolimus 1 mg capsule 1 tab PO BID RF: 0 brimonidine 0.15 % drops 1 drp EYE-BOTH BID RF: 0 warfarin 3 mg tablet 3 mg PO DAILY Qty: 0 RF: 0 insulin glargine 100 unit/mL solution 36 unit subcut BID RF: 0 Novolog Flexpen U-100 Insulin 100 unit/mL (3 mL) Insulin Pen 25 unit SUBCUT QID RF: 0 Referrals: Priyank Bustos MD [Primary Care Provider] -
[2019-06-24] MEDS: ALBUTEROL/IPRATROPIUM 3 ML AMPUL INH (10:00)
[2019-06-24] MEDS: CEFTRIAXONE 1 GM/50 ML FROZ.PIGGY IV (10:04)
[2019-06-24] MEDS: methylPREDNISolone 125 MG/2 ML VIAL IV (10:04)
[2019-06-24 10:13] LABS: Add Manual Diff / Slide Review NO; Basophils Absolute Auto 0 /uL (0-100); Basophils Percent Auto 0.6 % (0-2); Eosinophils Absolute Auto 0 /uL (0-450); Eosinophils Percent Auto 0.7 % (2-4); Hematocrit 28.8 % (36-46); Hemoglobin 8.8 g/dL (12.0-16.0); Lymphocytes Absolute Auto 500 /uL (1100-4500); Mean Corpuscular HGB Conc 30.5 % (30-36); Mean Corpuscular Hemoglobin 23.9 PG (26-34); Mean Corpuscular Volume 78.2 fL (80-100); Monocytes Absolute Auto 600 /uL (0-900); Monocytes Percent Auto 12.6 % (3-14); Neutrophils Absolute Auto 3300 /uL (1500-7000); Neutrophils Percent Auto 75.1 % (50-75); Platelet Count 282 X10^3/uL (150-400); Red Blood Cell Count 3.69 X10^6/uL (4.0-5.2); Red Cell Distribution Width 20.2 % (11.6-14.8); White Blood Cell Count 4.4 X10^3/uL (4.5-11.0)
[2019-06-24 10:24] LABS: Alanine Aminotransferase 16 IU/L (9-52); Albumin Globulin Ratio 1.7 (1.0-2.8); Alkaline Phosphatase 55 U/L (38-126); Aspartate Aminotransferase 18 IU/L (14-36); Bilirubin Total 1.2 mg/dL (0.2-1.3); Blood Urea Nitrogen 46 mg/dL (7-17); Calcium 9.3 mg/dL (8.4-10.2); Carbon Dioxide 24 mmol/L (22-32); Chloride 106 mmol/L (98-107); Estimated Glomerular Filt Rate 53.5 mL/min (>60); Globulin 2.3 g/dL (1.7-4.1); Glucose 147 mg/dL (80-110); HEMOLYSIS < 15 (0-50); Lipase 26 U/L (23-300); Potassium 3.9 mmol/L (3.4-5.1); Sodium 142 mmol/L (137-145); Total Protein 6.3 g/dL (6.3-8.2)
--- NOTE | 2019-06-24 10:33 | PC.NURSE ---
Lab and this RN unable to draw full labs ordered. Provider aware.
[2019-06-24 10:34] LABS: B Type Natriuretic Peptide 781 (<100)
[2019-06-24 10:35] LABS: Anisocytosis 2+
[2019-06-24 10:36] LABS: Ovalocytes 1+
[2019-06-24] MEDS: AZITHROMYCIN 500 MG in DEXTROSE 5% IN WATER 250 ML IV (10:45)
[2019-06-24 10:46] LABS: Procalcitonin < 0.05 ng/mL (<0.5)
[2019-06-24] MEDS: FUROSEMIDE 100 MG/10 ML VIAL 60 MG IV (11:19)
[2019-06-24 11:30] LABS: Troponin I 0.143 ng/mL (0.01-0.034)
[2019-06-24 11:44] LABS: Bacteria Urine Few (2-10); Culture Indicated Urine Specimen Cultured; RBC Urine None Seen (0-5/HPF); Squamous Epithelial Cell Urine 10-30 /HPF (0-5/HPF); Transitional Epi Cells Urine 5-10/HPF (0-5/HPF); WBC Urine 5-10/HPF (0-5/HPF)
[2019-06-24 12:16] LABS: Prothrombin Time 59.5 SECONDS (10.1-12.7)
[2019-06-24 12:19] LABS: PTT Partial Thromboplastin Tim 46 SECONDS (26.4-36.2)
[2019-06-24 12:23] LABS: Lactate (Lactic Acid) 0.9 mmol/L (0.7-2.1)
--- NOTE | 2019-06-24 13:44 | PC.NURSE ---
Rec'd report from JOSE RAMON Marsh. Pt resting in bed. appears to have increased WOB. remains on 4.5L NC 95%. awaiting transfer to [facility]. denies needs at this time. report called to receiving facility. encouraged to use call light for needs
== END 2019-06-24 14:26 | disposition short-term general hospital (02) ==
PROVIDERS: Emergency Provider Emergency Medicine; PCP Internal Medicine
DX: I50.9 Heart failure, unspecified (principal); J44.9 Chronic obstructive pulmonary disease, unspecified; R09.02 Hypoxemia
CPT/HCPCS: 36415; 71045; 80053; 81003; 81015; 83605; 83690; 83880; 84145; 84484; 85025; 85610; 85730; 87086; 93005; 94640; 96365; 96366; 96367; 96375; 99285; J1940; J2930